=== PATIENT | male | born 1985 | race Caucasian/White ===

== ENCOUNTER 2024-12-10 01:32 | Day surgery (SDC) | payer OTHER, SELFPAY ==
[2024-11-27 08:37] VITALS: BMI 33.4
--- OUTSIDE RECORDS SUMMARY | 2024-12-10 01:35 | XMS_ITS | Patient Health Record ---
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 KLL Diagnosis 1 Plantar fascial fibr omatosis (M72.2) Referred Organization [facility] Referred Provider BASIA MONTALVO Referred Address [address],[place], [id number] Referred Provider Specialty Podiatry Referral Priority Routine Reason REFERRAL ( O RTHOTICS ) FT INSRT REMV MOLD LNGTUDNL SUPP 4 UNITS ( 2 PAIRS ). KLL Diagnosis 1 Plantar fasciitis (M 72.2) Referred Organization [facility] Referred Provider BASIA MONTALVO Referred Address [address],[id number] Referred Provider Specialty Podiatry Referral Priority Routine Reason [facility] REFERRAL ( S URGERY ) [id number] SCOPE PLANTAR FASCIOTOMY QTY 1 PROVIDER: DR. MONTALVO FACILITY: [facility]. KLL Diagnosis 1 Plantar fasciitis (M 72.2) Referred Organization [facility] Referred Provider BASIA MONTALVO Referred Address [address],[place], [place],[id number] Referred Provider Specialty Podiatry Referral Priority Routine Reason [facility] REFERRAL ( E STABLISHED VISITS ) [id number] / [id number] Diagnosis 1 Plantar fasciitis (M 72.2) [facility] Referred Provider BASIA MONTALVO Referred Address [address],[id number] Referred Provider Specialty Podiatry Referral Priority Routine Medications Medication SIG (Take, Route, Frequency, Duration) Notes Start Date End Date Status methylPREDNISolone 4 MG as directed Orally one pack 024 Active Ciclopirox 8 % 1 application Externally Once a day for 30 days one bottle, 6.6mL or similar Active HYDROcodone-Acetaminophen 5-325 MG 1 tablet as needed Orally every 4-6 hrs As needed for pain. 07/03/2024 Active Immunizations Vaccine Route Administration Date Status Comme nts Pneumococcal polysaccharide PPV23 Unknown 09/02/2024 Re fused Influenza, high dose seasonal Unknown 04/11/2023 Admini stered Influenza, high dose seasonal Unknown 09/02/2024 Refuse d Vital Signs Height-cm 172.72 cm 09/02/2024 Weight-kg 97.52 kg 09/02/2024 Height 68 in 09/02/2024 Weight 215 lbs 09/02/2024 BMI 32.69 kg/m2 09/02/2024 Encounters Encounter Location Date Provider Diagnosis [address] [id number] 07/04/2024 BASIA MONTALVO [facility] [address] [id number] 12/26/2023 BASIA SELVIN Posterior tibial tendinitis, right leg M76.821 ; Plantar fasciitis M72.2 ; Pain in right foot M79.671 and Tinea unguium B35.1 [facility] [address] [id number] 01/16/2024 BASIA SELVIN Posterior tibial tendinitis, right leg M76.821 ; Plantar fasciitis M72.2 ; Pain in right foot M79.671 and Tinea unguium B35.1 [facility] [address] [place], [place] [id number] 04/15/2024 BASIA SNOOK Posterior tibial tendinitis, right leg M76.821 ; Plantar fasciitis M72.2 ; Pain in right foot M79.671 and Tinea unguium B35.1 [facility] [address] [place], [place] [id number] 05/13/2024 BASIA SNOOK Plantar fasciitis M72.2 and Pain in right foot M79.671 [facility] [address] [place], [place] [id number] 06/10/2024 BASIA SNOOK Plantar fasciitis M72.2 and Pain in right foot M79.671 [facility] [address] [place], [place] [id number] 07/11/2024 BASIA SNOOK Plantar fasciitis M72.2 and Encounter for other specified surgical aftercare Z48.89 [facility] [address] [place], [place] [id number] 2024 BASIA SNOOK Plantar fasciitis M72.2 and Encounter for other specified surgical aftercare Z48.89 [facility] [address] [place], [place] [id number] 08/05/2024 BASIA SNOOK Plantar fasciitis M72.2 and Encounter for other specified surgical aftercare Z48.89 [facility] [address] [place], [place] [id number] 09/02/2024 BASIA SNOOK Plantar fasciitis M72.2 and Encounter for other specified surgical aftercare Z48.89 [facility] [address] [place], [place] [id number] 06/26/2024 BASIA SNOOK [facility] [address] [place], [place] [id number] 07/03/2024 BASIA SNOOK Assessments Encounter Date Diagnosis (ICD Code) Assessment Notes Treatment Notes Treatment Clinical Notes Section Notes 12/26/2023 Posterior tibial tendinitis, right leg (ICD-10 - M76.821) Posterior Tibialis Tendon Dysfunction: I discussed anti-inflammatory treatment options and various means of immobilization with the patient. I educated the patient on icing and stretching, supportive shoegear, and the use of orthotic devices and bracing. Orthotic Continue: Advised patient to continue to wear orthotic devices. 12/26/2023 Plantar fasciitis (ICD-10 - M72.2) Plantar Fascitis: I discussed anti-inflammatory treatment options and various means of pronation control with the patient. I educated the patient on icing and stretching, supportive shoegear, and the use of orthotic devices. Kenalog Injection: Following skin prep, a total of 3 ccs of a 1-1-1 mix of 0.5% marcaine plain, 1% lidocaine plain, and Kenalog was injected to the right heel 01/16/2024 Posterior tibial tendinitis, right leg (ICD-10 - M76.821) Posterior Tibialis Tendon Dysfunction: I discussed anti-inflammatory treatment options and various means of immobilization with the patient. I educated the patient on icing and stretching, supportive shoegear, and the use of orthotic devices and bracing. Orthotic Continue: Advised patient to continue to wear orthotic devices. 01/16/2024 Plantar fasciitis (ICD-10 - M72.2) Plantar Fascitis: I discussed anti-inflammatory treatment options and various means of pronation control with the patient. I educated the patient on icing and stretching, supportive shoegear, and the use of orthotic devices. Consult: Physical Therapy, eval and treat: plantar fascitis. SAFB 04/15/2024 Posterior tibial tendinitis, right leg (ICD-10 - M76.821) Posterior Tibialis Tendon Dysfunction: I discussed anti-inflammatory treatment options and various means of immobilization with the patient. I educated the patient on icing and stretching, supportive shoegear, and the use of orthotic devices and bracing. Orthotic Continue: Advised patient to continue to wear orthotic devices. 06/10/2024 Plantar fasciitis (ICD-10 - M72.2) Plantar Fascitis: I discussed anti-inflammatory treatment options and various means of pronation control with the patient. I educated the patient on icing and stretching, supportive shoegear, and the use of orthotic devices. Orthotic Dispense: The orthotic devices were dispensed and fitted. It was noted that the orthotic conformed well to the patient's foot in the subtalar joint neutral position. The patient was educated on the device's use, as well as the gradual break-in period for the device. 07/11/2024 Encounter for other specified surgical aftercare (ICD-10 - Z48.89) 07/11/2024 Plantar fasciitis (ICD-10 - M72.2) Dressing Change: The old dressing was removed. Utilizing aseptic technique, a new sterile compression dressing was applied. Patient was instructed to keep it dry and not remove it. Continue post-operative restrictions. Keep foot and dressing dry. Wear surgical shoe at all times when bearing weight. Decrease activity. 2024 Encounter for other specified surgical aftercare (ICD-10 - Z48.89) 2024 Plantar fasciitis (ICD-10 - M72.2) Suture Removal: The sutures were removed. The patient may progress to normal shoes and activities as tolerated. Work Restrictions: Provided a note to the patient outlining work restrictions and limitations. 08/05/2024 Encounter for other specified surgical aftercare (ICD-10 - Z48.89) 08/05/2024 Plantar fasciitis (ICD-10 - M72.2) Strapping and Padding: A removable longitudinal metatarsal strapping was made. The patient was educated on its use and effect. This was done to provide support to the arch. Patient will gradually transition from the strapping LM pad back to his custom orthotics 09/02/2024 Encounter for other specified surgical aftercare (ICD-10 - Z48.89) 09/02/2024 Plantar fasciitis (ICD-10 - M72.2) Surgical Restriction Release: Patient may resume normal bathing. Return to normal shoes. Gradual return to activities as tolerated. Patient instructed to contact the office if any issues arise. Orthotic Continue: Advised patient to continue to wear orthotic devices. 04/15/2024 Plantar fasciitis (ICD-10 - M72.2) Plantar Fascitis: I discussed anti-inflammatory treatment options and various means of pronation control with the patient. I educated the patient on icing and stretching, supportive shoegear, and the use of orthotic devices. Night Splint: A night splint was fitted and dispensed. The patient was instructed on its use. 05/13/2024 Plantar fasciitis (ICD-10 - M72.2) Plantar Fascitis: I discussed anti-inflammatory treatment options and various means of pronation control with the patient. I educated the patient on icing and stretching, supportive shoegear, and the use of orthotic devices. Orthotic Scan: The patient was scanned for functional orthotic devices. This was done in the subtalar joint neutral position in a non-weightbearing fashion. The patient will follow-up in 3-4 weeks time to be dispensed and fitted with the devices. 06/10/2024 Pain in right foot (ICD-10 - M79.671) 05/13/2024 Pain in right foot (ICD-10 - M79.671) 04/15/2024 Pain in right foot (ICD-10 - M79.671) 01/16/2024 Pain in right foot (ICD-10 - M79.671) 12/26/2023 Pain in right foot (ICD-10 - M79.671) 12/26/2023 Tinea unguium (ICD-10 - B35.1) 01/16/2024 Tinea unguium (ICD-10 - B35.1) 04/15/2024 Tinea unguium (ICD-10 - B35.1) 05/13/2024 Other EPF Surgical Consult: Surgical Consent The patient understands there are no guarantees. There is a chance of: 1. Infection 2. Overcorrection 3. Undercorrection 4. Non resolution of the problem 5. Return of the problem 6. Numbness 7. Anesthetic reaction 8. Healing problems or blood clot 9. Additional or revisional surgery may be required if complications occur The patient had no further question and has agreed to undergo surgical correction of the admitting diagnosis. Patient has signed the written consent form at this time. Endoscopic Plantar Fasciotomy right foot Plan Of Treatment No Information Insurance Providers Payer Name Payer Address Payer Phone Subscriber Number Group Number Insured Name Patient Relationship to Insured Coverage Start Date Coverage End Date [facility] [address] [phone] [id number] Ok Cleary Self - patient is the insured
--- OUTSIDE RECORDS SUMMARY | 2024-12-10 01:36 | XMS_ITS | Continuity of Care Document ---
Author Name [facility] Organization [facility] Care Team Providers Care Research Pharmacist Name Role Phone [facility] Unavailable Unavailable Problems Combined list of problems from Department of Defense and Veterans Affairs facilities. It does not include entries that were removed or entered in error. 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) Active 05/31/20 15 Condition [facility] Obesity, unspecified Active 06/22/18 99 Condition [facility] Elevated blood-pressure reading, without diagnosis of hypertension Active 06/22/18 99 Condition [facility] Ankle pain Active Condition [facility] Gastroenteritis Active Condition [facility] Headache Active Condition [facility] Hemorrhoids Active Condition [facility] Hyperlipidemia Active Condition [facility] Migraine without aura1 Active Condition Outside Source Comment: Headaches described are c/w migraine without aura. No concerning neurologic features. No evidence to suggest tumor or other concerning etiology. Normal neurologic exam. Asymptomatic x2 years & headaches successfully abort with OTC meds. Recommendations: 1. No reason to disapprove commissioning physical from a neurologic standpoint. 2. No indication for further work-up or specific treatment at this time. [facility] WARTS HAND RIGHT Active Condition [facility] TENDONITIS PATELLAR Active Condition [facility] URETHRITIS Inactive Condition [facility] DERMATOPHYTOSIS Active Condition [facility] UPPER RESPIRATORY INFECTION Inactive Condition [facility] SORE THROAT Inactive Condition [facility] SINUSITIS Inactive Condition [facility] abnormal urethral discharge Inactive Condition [facility] NORMAL ROUTINE HISTORY AND PHYSICAL Inactive Condition [facility] visit for: issue repeat prescription Inactive Condition [facility] visit for: refer patient without exam or treatment Inactive Condition [facility] HEMORRHOIDS Active Condition [facility] SEBORRHEIC DERMATITIS Inactive Condition DoD ankle joint pain Active Condition DoD COMMON COLD Inactive Condition DoD ANKLE SPRAIN Inactive Condition DoD Physical Examination Active Condition patient has bee n given to the patient Separation physical, paperwork for sports participation during [facility] training has been completed and given to patient. Also a copy of the January [address] Davis ( [facility] neurologist) patient presented with this printout in hand. DoD DERMATOPHYTOSIS ONYCHOMYCOSIS TOENAILS RIGHT 5TH Active Condition minimal involvement of pink toe nail; discussed treatment options with patient--at this time feel oral antifungal med rsiks outweight benefits--pt elects trial of tineacide topical ointment; discussed proper nail trimming; trimmed down nail today without problems. [facility] Patient Counseling: Inactive Condition DoD Laboratory Studies Inactive Condition p t will recheck labs in 2 weeks and call for results.pt agrees DoD DERMATOPHYTOSIS NAILS ONYCHOMYCOSIS Inactive Condition [facility] DERMATOLOGY NON-INFECTIOUS NAILS Active Condition DoD ACUTE TONSILLITIS Inactive Condition [facility] MIGRAINE HEADACHE Active Condition [facility] visit for: administrative purpose Inactive Condition DoD WARTS COMMON Inactive Condition DoD FOLLICULITIS Active Condition DoD visit for: occupational health / fitness exam Inactive Condition DoD visit for: services physical Inactive Condition DoD Tremor Active Condition DoD COMMON MIGRAINE (WITHOUT AURA) Active Condition Headaches described are c/w migraine without aura. No concerning neurologic features. No evidence to suggest tumor or other concerning etiology. Normal neurologic exam. Asymptomatic x2 years & headaches successfully abort with OTC meds.Recommendat ions:1. No reason to disapprove commissioning physical from a neurologic standpoint.2. No indication for further work-up or specific treatment at this time. DoD headache Active Condition DoD GASTROENTERITIS Active Condition DoD Pain in joint, lower leg Active Condition DoD Care involving other physical therapy Inactive Condition DoD Other Physical Therapy Active Condition DoD PATELLOFEMORAL SYNDROME Active Condition DoD Medications Combined list of outpatient medications from Department of Defense and Veterans Affairs facilities.Medications provided include 1) outpatient medications from the last 15 months, and 2) patient-reported medications. Medication Details Route Status Patient Instructions Prescription Expires Prescription Number Last Dispense Date Ordering Provider Order Date Order Qty Source Aleve mg, Oral, every 12 hr, 0 total refill(s ), Maintena nce [facility] mouth) [facility] [place] Aleve 220 mg oral capsule mg, Oral, every 12 hr, 0 total refill(s ), Maintena nce Oral (given by mouth) [facility] 20[facility] alfuzosin 10 mg oral tablet, extended release 1 tab(s), Oral, Daily, # 90 tab(s), 3 total refill(s ), Maintena nce, Pharmacy : [facility] Oral (given by mouth) Discont inued 07/02/2024 4 2024 90.0 0055C-3 [facility] [place] alfuzosin 10 mg oral tablet, extended release 1 tab(s), Oral, Daily, # 90 tab(s), 3 total refill(s ), Maintena nce, Pharmacy : [facility] Oral (given by mouth) Ordered 5 2024 90.0 0055C-[address] [place], [place] [address]Jennifer Nunn Alfuzosin Hydrochlori de 10mg, (UroXatral) , Extended release tablet Take with food/mil k.Take or use exactly as directed .Obtain advice for OTCs.May cause drowsine ss/dizzi ness.May impair driving. Swallow whole. 09/23/2024 [id number] 4 2023 90 [employer] ([facility]) atorvastati n 40 mg oral tablet 1 tab(s), Oral, Daily, for choleste rol, # 90 tab(s), 3 total refill(s ), Maintena nce, Pharmacy : [facility] Oral (given by mouth) Ordered 5 2023 90.0 0055C-[address] [place] [address] [place] Sinus Rinse Kit 0.9% nasal powder for reconstitut ion See Instruct ions, Dissolve the contents of one packet in 8 oz of purified /filtere d water and instill into sinuses as directed , # 50 EA, 0 total refill(s ), Maintena nce, Pharmacy : [facility] Discont inued 10/05/2023 3 2023 50.0 0009C-5 [employer] CELECOXIB (celecoxib) , 200 MG, CAPSULE, ORAL, [facility], 100 ea. BOTTLE Active [id number] 2023 30 Pharmac y Data Transac tion Service Facilit y celecoxib 200 mg oral capsule 30 EA, 0 Refill(s ), TAKE 1 CAPSULE BY MOUTH DAILY WITH FOOD, 0 total refill(s ), Soft Stop Ordered 2023 7379[facility]L [facility] CETIRIZINE (U/D) 10 MG ORAL TAB May cause drowsine ss.Obtai n advice for OTCs. 08/14/2024 [id number] 4 [address] [place] [address] [place] RIOS ([facility]) cetirizine 10 mg tablet See Instruct ions, # 90 EA, 1 total refill(s ), Acute Complet ed 05/07/2023 3 2022 90.0 Ambulat ory Pharmac y CLOBETASOL PROPIONATE (clobetasol propionate) , 0.05 %, OINT. (G), TOPICAL, ENCUBE ETHICALS, 60 g TUBE Active [id number] 4 2023 60 Pharmac y Data Transac tion Service Facilit y Clotrimazol e (Lotrimin Eq.) Cream 1% Topical For external use. 09/23/2024 [id number] 4 [address] [place] [address] [place] DILLARD ([facility]) clotrimazol e 1% topical cream 1 appl(s), Topical, BID, X 6 weeks, # 28.35 g, 0 total refill(s ), Acute, Pharmacy : [facility] Topica l (on the skin) Complet ed 11/05/2023 4 2023 28.35 0055C-[address] [place] [address] [place] collagen hemostat absorbable powder (1g) 1 appl(s), Topical, As Directed , # 5, 0 total refill(s ), Maintena nce, Supply Topica l (on the skin) Ordered 2024 0055C-[address] [place] [address] [place] cyclobenzap rine 10 mg oral tablet 1 tab(s), Oral, every day at bedtime, # 21 tab(s), 0 total refill(s ), Acute, Pharmacy : [facility] Oral (given by mouth) Complet ed 09/19/2024 5 2024 21.0 0055C-[address] [place] [address] [place] escitalopra m 10 mg oral tablet See Instruct ions, Oral, take one-half tablet by mouth every day for 7 days, then take one tablet every day for anxiety, # 85 tab(s), 0 total refill(s ), Maintena nce, 90 days, Pharmacy : [facility] Oral (given by mouth) Discont inued 10/13/20242024 85.0 0055C-[address] [place] [address] escitalopra m 10 mg oral tablet See Instruct ions, Oral, take one-half tablet by mouth every day for 7 days, then take one tablet every day for anxiety, # 85 tab(s), 0 total refill(s ), Maintena nce, 90 days, Pharmacy : [facility] Oral (given by mouth) Discont inued 10/13/2024 5 2024 85.0 0055C-[address] [place] [address] [place] escitalopra m 20 mg oral tablet 1 tab(s), Oral, Daily, # 90 tab(s), 1 total refill(s ), Maintena nce, Pharmacy : [facility] Oral (given by mouth) Ordered 5 2024 90.0 0055C-[address] [place] [address] escitalopra m 20 mg oral tablet 1 tab(s), Oral, Daily, # 60 tab(s), 0 total refill(s ), Maintena nce, Pharmacy : [facility] Oral (given by mouth) Discont inued 10/13/2024 5 2024 60.0 0055C-[address] [place] [address] [place] Eye Itch Relief 0.025% ophthalmic solution 5 mL, 0 Refill(s ), administ er 1 drop into affected eye) 2 times per day for 30 days, 0 total refill(s ), Soft Stop Discont inued 10/05/20232023 7[facility] fluticasone 50 mcg/inh nasal spray USE 2 SPRAYS IN EACH NOSTRIL DAILY, # 16 g, 3 total refill(s ), Acute Complet ed 11/12/2023 3 2023 16.0 Ambulat ory Pharmac y HYDROCORTIS ONE (HYDROCORTI SONE), 1%, OINT.(GM), TOPICAL, FOUGERA, 28.35 g TUBE Cancele d [id number] : 2023 0 Pharmac y Data Transac tion Service Facilit y hydrocortis one 2.5% topical cream 30 g, 0 Refill(s ), apply to affected area three times daily for 7 days, 0 total refill(s ), Soft Stop Discont inued 10/05/20232023 [facility] ibuprofen 600 mg oral tablet 1 tab(s), Oral, every 8 hr, PRN pain (moderat e), X 30 days, # 90 tab(s), 0 total refill(s ), Acute, 06/11/24 9:53:00 AM CANVAS BASTER, Pharmacy : [facility] Oral (given by mouth) Complet ed 06/11/2024 4 2023 90.0 0055C-3 [facility] X[facility]O [facility] levothyroxi ne 112 mcg oral tablet 1 tab(s), Oral, Daily, for thyroid; as a single daily dose before breakfas t/on an empty stomach, # 90 tab(s), 0 total refill(s ), Astrid ohe, Pharmacy : [facility] Oral (given by mouth) Discont inued 07/02/2024 5 2024 90.0 0055C[facility] lidocaine 5% topical patch 1 patch(es ), Topical, Daily, Leave on for up to 12 hours within a 24 hour period (12 hours on, 12 hours off), # 30 patch(es ), 3 total refill(s ), Astrid ohsunny, Pharmacy : [facility] Topica l (on the skin) Ordered 5 2024 30.0 0055C-3 [facility] XIAO [facility] Mucinex 600 mg oral tablet, extended release 1 tab(s), Oral, every 12 hr, # 20 tab(s), 0 total refill(s ), Acute, 08/29/23 12:00:00 AM CANVAS BASTER, Pharmacy : [facility] Oral (given by mouth) Complet ed 08/29/2023 4 2023 20.0 0055C-[address] [place], [place] [address]Jennifer Nunn multivitami n (Vit B Complex/Vit C/Zinc) tablet tab(s), Oral, Daily, 0 total refill(s ), Maintena nce Oral (given by mouth) Ordered 2022 0055C-[address] [place] [address] [place] nabumetone 500 mg tablet See Instruct ions, Oral, # 28 EA, 1 total refill(s ), Hard Stop Oral (given by mouth) Complet ed 09/24/2023 4 2023 28.0 Ambulat ory Pharmac y Sudafed 30 mg oral tablet 1 tab(s), Oral, every 6 hr, # 24 tab(s), 0 total refill(s ), Acute, 08/29/23 12:00:00 AM CANVAS BASTER, Pharmacy : [facility] Oral (given by mouth) Complet ed 08/29/2023 4 2023 24.0 0055C-[address] [place], [place] [address]FREDRICK [place] TACROLIMUS (tacrolimus ), 0.1 %, OINT. (G), TOPICAL, [employer] PHARMA, 60 g TUBE Active [id number] 4 2023 60 Pharmac y Data Transac tion Service Facilit y Tylenol 325 mg oral tablet 1 tab(s), Oral, every 4 hr, PRN pain or fever, # 100 tab(s), 0 total refill(s ), Acute, 09/24/23 10:42:50 AM CDT, Pharmacy : [facility] Oral (given by mouth) Complet ed 09/24/2023 4 2023 100.0 0055C-[address] [place] [address] [place] Tylenol 325 mg oral tablet 1 tab(s), Oral, every 4 hr, PRN pain or fever, X 10 days, # 50 tab(s), 0 total refill(s ), Acute, 05/22/24 9:53:00 AM CANVAS BASTER, Pharmacy : [facility] Oral (given by mouth) Complet ed 05/22/2024 4 2023 50.0 0055C-3 [facility] [place] ZyrTEC 10 mg oral tablet 1 tab(s), Oral, Daily, PRN allergy symptoms , # 90 tab(s), 3 total refill(s ), Maintena nce Oral (given by mouth) Complet ed 09/24/20232023 90.0 0055C-3 [facility] [place] ZyrTEC 10 mg oral tablet 1 tab(s), Oral, Daily, PRN allergy symptoms , # 90 tab(s), 3 total refill(s ), Maintena nce, Pharmacy : [facility] Oral (given by mouth) Discont inued 07/02/2024 4 2024 90.0 0055C-3 [facility] [place] ZyrTEC 10 mg oral tablet 1 tab(s), Oral, Daily, PRN allergy symptoms , # 90 tab(s), 3 total refill(s ), Maintena nce, Pharmacy : [facility] Oral (given by mouth) Ordered 5 2024 90.0 0055C[facility] [place] Allergies, Adverse Reactions, Alerts Combined list of allergies from Department of Defense and Veterans Affairs facilities. It does not include entries that were removed or entered in error. Substance Category Reaction Severity Reaction type Status Date Reported Comments Source No Known Allergies Drug allergy (disorder) active 05/08/2022 [facility] Seasonal Allergies Allergy to substance Unknown Unknown Active [facility] Immunizations Combined list of available immunizations from the Department of Defense and Veterans Affairs facilities. Immunization Series Date Given Administered By Site Reaction Lot Number CVX Code Drug General Cargo Clerk Status Comments Source SARS-CoV-2 (COVID-19) mRNA-Bivalent 2022 [id number] complet ed SARS-CoV- 2 (COVID-19 ) mRNA-Biva lent 07/28/22 Given Ambulat ory Pharmac y SARS-CoV-2 (COVID-19) mRNA-Bivalent 2022 [id number] 229 complet ed SARS-CoV- 2 (COVID-19 ) mRNA-Biva lent 07/28/22 Given Ambulat ory Pharmac y COVID-19, mRNA, LNP-S, bivalent, PF, 50 mcg/0.5 mL or 25mcg/0.25 mL dose (Moderna, 6+ years) 3 2022 [id number] 229 Moderna [employer] (MOD) complet ed COVID-19, mRNA, LNP-S, bivalent, PF, 50 mcg/0.5 mL or 25mcg/0.2 5 mL dose (Moderna, 6+ years) DoD influenza, injectable, quadrivalent- pf 2021 [id number] 150 GlaxoSmithKli ne complet ed influenza , injectabl e, quadrival ent-pf 05/11/22 Given Ambulat ory Pharmac y influenza, injectable, quadrivalent- pf 2021 [id number] 150 GlaxoSmithKli ne complet ed influenza , injectabl e, quadrival ent-pf 05/11/22 Given Ambulat ory Pharmac y Influenza, injectable, quadrivalent, preservative free 0 2021 [id number] 150 [facility] Influenza , injectabl e, quadrival ent, preservat thony free [facility] tetanus-dipht h toxoids (Td) adult/adol 2021 [id number] 09 sanofi pasteur complet ed tetanus-d iphth toxoids (Td) adult/ado l 02/20/22 Given Ambulat ory Pharmac y tetanus-dipht h toxoids (Td) adult/adol 2021 [id number] 09 sanofi pasteur complet ed tetanus-d iphth toxoids (Td) adult/ado l 02/20/22 Given Ambulat ory Pharmac y tetanus and diphtheria toxoids, adsorbed, preservative free, for adult use (2 Lf of tetanus toxoid and 2 Lf of diphtheria toxoid) 2 2021 [id number] 09 Sanofi Pasteur (PMC) complet ed tetanus and diphtheri a toxoids, adsorbed, preservat thony free, for adult use (2 Lf of tetanus toxoid and 2 Lf of diphtheri a toxoid) DoD COVID Vaccine Moderna 2021 zzLef t Arm [id number] complet ed COVID Vaccine Moderna 09/28/21 Given Ambulat ory Pharmac y COVID Vaccine Moderna [id number] complet ed COVID Vaccine Moderna 09/28/21 Given Ambulat ory Pharmac y SARS-COV-2 (COVID-19) vaccine, mRNA, spike protein, LNP, preservative free, 100 mcg or 50 mcg dose 1 2021 [id number] Moderna [employer]. (MOD) complet ed SARS-COV- 2 (COVID-19 ) vaccine, mRNA, spike protein, LNP, preservat thony free, 100 mcg or 50 mcg dose DoD influenza, injectable, quadrivalent- pf 2020 [id number] 150 GlaxoSmithKli ne complet ed influenza , injectabl e, quadrival ent-pf 04/13/21 Given Ambulat ory Pharmac y influenza, injectable, quadrivalent- pf 2020 [id number] 150 GlaxoSmithKli ne complet ed influenza , injectabl e, quadrival ent-pf 04/13/21 Given Ambulat ory Pharmac y Influenza, injectable, quadrivalent, preservative free 1 2020 [id number] 150 [employer] (SKB) complet ed Influenza , injectabl e, quadrival ent, preservat thony free DoD influenza, seasonal, [place], quadrivalent, 0.5mL dose, with preservative 1 2020 [id number] Sanofi Pasteur (PMC) complet ed influenza , seasonal, [place], quadrival ent, 0.5mL dose, with preservat thony DoD SARS-CoV-2 (COVID-19) Ad26 vaccine, rec 2020 [id number] [employer] complet ed SARS-CoV- 2 (COVID-19 ) Ad26 vaccine, rec 08/31/20 Given Ambulat ory Pharmac y SARS-CoV-2 (COVID-19) Ad26 vaccine, rec 2020 [id number] [employer] complet ed SARS-CoV- 2 (COVID-19 ) Ad26 vaccine, rec 08/31/20 Given Ambulat ory Pharmac y SARS-COV-2 (COVID-19) vaccine, vector non-replicati ng, recombinant spike protein-Ad26, preservative free, 0.5 mL 1 2020 [id number] (SANJIVJ) complet ed SARS-COV- 2 (COVID-19 ) vaccine, vector non-repli cating, recombina nt spike protein-A d26, preservat thony free, 0.5 mL DoD influenza, injectable, quadrivalent- pf 2019 [id number] 150 [employer] complet ed influenza , injectabl e, quadrival ent-pf 05/06/20 Given Ambulat ory Pharmac y influenza, injectable, quadrivalent- pf 2019 [id number] 150 [employer] complet ed influenza , injectabl e, quadrival ent-pf 05/06/20 Given Ambulat ory Pharmac y Influenza, injectable, quadrivalent, preservative free 0 2019 [id number] 150 [employer] (SEQ) complet ed Influenza , injectabl e, quadrival ent, preservat thony free DoD influenza, injectable, quadrivalent- pf 2018 [id number] 346 150 [employer] complet ed influenza , injectabl e, quadrival ent-pf 05/13/19 Given Ambulat ory Pharmac y Influenza, injectable, quadrivalent, preservative free 0 2018 [id number] 346 150 [employer] (SEQ) complet ed Influenza , injectabl e, quadrival ent, preservat thony free DoD typhoid Vi capsular polysaccharid e vac 2017 [id number] 101 sanofi pasteur complet ed typhoid Vi capsular polysacch aride vac 04/22/18 Given Ambulat ory Pharmac y anthrax vaccine 2017 [id number] 24 [employer] complet ed anthrax vaccine 04/22/18 Given Ambulat ory Pharmac y anthrax vaccine 2017 [id number] 24 [employer] complet ed anthrax vaccine 04/22/18 Given Ambulat ory Pharmac y typhoid Vi capsular polysaccharid e vac 2017 [id number] 101 sanofi pasteur complet ed typhoid Vi capsular polysacch aride vac 04/22/18 Given Ambulat ory Pharmac y anthrax vaccine 3 2017 [id number] 24 [employer] [place] (MIP) complet ed anthrax vaccine DoD typhoid Vi capsular polysaccharid e vaccine 1 2017 [id number] 101 Sanofi Pasteur (PMC) complet ed typhoid Vi capsular polysacch aride vaccine DoD influenza, injectable, quadrivalent 2017 [id number] 1A 158 [employer] complet ed influenza , injectabl e, quadrival ent 04/10/18 Given Ambulat ory Pharmac y influenza, injectable, quadrivalent 2017 [id number] 1A 158 [employer] complet ed influenza , injectabl e, quadrival ent 04/10/18 Given Ambulat ory Pharmac y influenza, injectable, quadrivalent, contains preservative 1 2017 [id number] 1A 158 [employer] (SEQ) complet ed influenza , injectabl e, quadrival ent, contains preservat thony DoD anthrax vaccine 2017 [id number] 24 [employer] complet ed anthrax vaccine 11/20/17 Given Ambulat ory Pharmac y anthrax vaccine 2 2017 [id number] 24 [employer] [place] ([facility]) complet ed anthrax vaccine DoD measles virus vaccine 0 2017 05 () Not Given measles virus vaccine DoD rubella virus vaccine 0 2017 06 () Not Given rubella virus vaccine DoD mumps virus vaccine 0 2017 07 () Not Given mumps virus vaccine DoD anthrax vaccine 2017 [id number] 24 [employer] complet ed anthrax vaccine 10/08/17 Given Ambulat ory Pharmac y poliovirus vaccine, inactivated 2017 [id number] 10 sanofi pasteur complet ed polioviru s vaccine, inactivat ed 10/08/17 Given Ambulat ory Pharmac y anthrax vaccine 2017 [id number] 24 [employer] complet ed anthrax vaccine 10/08/17 Given Ambulat ory Pharmac y poliovirus vaccine, inactivated 2017 [id number] 10 sanofi pasteur complet ed polioviru s vaccine, inactivat ed 10/08/17 Given Ambulat ory Pharmac y measles virus vaccine 2 2017 05 () Not Given measles virus vaccine DoD rubella virus vaccine 2 2017 06 () Not Given rubella virus vaccine DoD mumps virus vaccine 2 2017 07 () Not Given mumps virus vaccine DoD poliovirus vaccine, inactivated 2 2017 [id number] 10 Sanofi Pasteur (PMC) complet ed polioviru s vaccine, inactivat ed DoD anthrax vaccine 1 2017 [id number] 24 [facility] [employer] [place] (MIP) complet ed anthrax vaccine DoD tuberculin purified protein derivative 2016 [id number] 96 sanofi pasteur complet ed tuberculi n purified protein derivativ e 04/11/17 Given Ambulat ory Pharmac y Influenza, inj, MDCK, quadrivalent- pf [id number] 171 [employer] complet ed Influenza , inj, MDCK, quadrival ent-pf 04/05/17 Given Ambulat ory Pharmac y Influenza, inj, MDCK, quadrivalent- pf 2016231 171 [employer] complet ed Influenza , inj, MDCK, quadrival ent-pf 04/05/17 Given Ambulat ory Pharmac y Influenza, injectable, Madin Dena Canine Kidney, preservative free, quadrivalent 14 [id number] 171 [employer] (SEQ) comple t ed Influenza , injectabl e, Madin [place] Canine Kidney, preservat thony free, quadrival ent DoD influenza, seasonal, injectable-pf 2015 [id number] 140 [employer] complet ed influenza , seasonal, injectabl e-pf 04/20/16 Given Ambulat ory Pharmac y typhoid Vi capsular polysaccharid e vac 2015 [id number] 101 sanofi pasteur complet ed typhoid Vi capsular polysacch aride vac 04/20/16 Given Ambulat ory Pharmac y meningococcal A,C,Y,W-135 (MCV4P) 2015 [id number] 114 sanofi pasteur complet ed meningoco ccal A,C,Y,W-1 35 (MCV4P) 04/20/16 Given Ambulat ory Pharmac y meningococcal A,C,Y,W-135 (MCV4P) 2015 [id number] 114 sanofi pasteur complet ed meningoco ccal A,C,Y,W-1 35 (MCV4P) 04/20/16 Given Ambulat ory Pharmac y typhoid Vi capsular polysaccharid e vac 2015 L1570 101 sanofi pasteur complet ed typhoid Vi capsular polysacch aride vac 04/20/16 Given Ambulat ory Pharmac y influenza, seasonal, injectable-pf 2015 [id number] 140 [employer] complet ed influenza , seasonal, injectabl e-pf 04/20/16 Given Ambulat ory Pharmac y typhoid Vi capsular polysaccharid e vaccine 3 2015 [id number] 101 Sanofi Pasteur ([facility]) complet ed typhoid Vi capsular polysacch aride vaccine DoD meningococcal polysaccharid e (groups A, C, Y and W-135) diphtheria toxoid conjugate vaccine (MCV4P) 3 2015 [id number] 114 Sanofi Pasteur ([facility]) complet ed meningoco ccal polysacch aride (groups A, C, Y and W-135) diphtheri a toxoid conjugate vaccine (MCV4P) DoD Influenza, seasonal, injectable, preservative free 13 2015 [id number] Seqirus (SEQ) comple t ed Influenza , seasonal, injectabl e, preservat thony free DoD yellow fever vaccine 2015 [id number] 37 sanofi pasteur complet ed yellow fever vaccine 01/05/16 Given Ambulat ory Pharmac y yellow fever vaccine 2015 [id number] 37 sanofi pasteur complet ed yellow fever vaccine 01/05/16 Given Ambulat ory Pharmac y yellow fever vaccine 1 2015 [id number] 37 Sanofi Pasteur (PMC) complet ed yellow fever vaccine DoD influenza, live, intranasal,qu adrivalent 2014 TRANSCR IBED 149 complet ed influenza , live, intranasa l,quadriv alent 03/31/15 Given Ambulat ory Pharmac y influenza, live, intranasal,qu adrivalent 2014 TRANSCR IBED 149 complet ed influenza , live, intranasa l,quadriv alent 03/31/15 Given Ambulat ory Pharmac y influenza, live, intranasal, quadrivalent 1 2014 149 Transcribed (TRS) complet ed influenza , live, intranasa l, quadrival ent DoD influenza, live, intranasal,qu adrivalent 2013 [id number] 149 Med[employer] Inc comple t ed influenza , live, intranasa l,quadriv alent 04/16/14 Given Ambulat ory Pharmac y influenza, live, intranasal,qu adrivalent 2013 [id number] 149 [employer] Inc comple t ed influenza , live, intranasa l,quadriv alent 04/16/14 Given Ambulat ory Pharmac y influenza, live, intranasal, quadrivalent 11 2013 [id number] 149 MedImmune, Inc. (MED) complet ed influenza , live, intranasa l, quadrival ent DoD typhoid Vi capsular polysaccharid e vac 2012 [id number] 101 sanofi pasteur complet ed typhoid Vi capsular polysacch aride vac 04/30/13 Given Ambulat ory Pharmac y typhoid Vi capsular polysaccharid e vac 2012 [id number] 101 sanofi pasteur complet ed typhoid Vi capsular polysacch aride vac 04/30/13 Given Ambulat ory Pharmac y typhoid Vi capsular polysaccharid e vaccine 2 2012 [id number] 101 Sanofi Pasteur ([facility]) complet ed typhoid Vi capsular polysacch aride vaccine DoD influenza, live, intranasal,qu adrivalent 2012 [id number] 149 Med[employer] Inc comple t ed influenza , live, intranasa l,quadriv alent 03/06/13 Given Ambulat ory Pharmac y influenza, live, intranasal,qu adrivalent 2012 [id number] 149 Med[employer] Inc comple t ed influenza , live, intranasa l,quadriv alent 03/06/13 Given Ambulat ory Pharmac y influenza, live, intranasal, quadrivalent 10 2012 [id number] 149 MedImmune, Inc. (MED) complet ed influenza , live, intranasa l, quadrival ent DoD influenza virus vaccine, live 2011 [id number] 111 Med[employer] Inc comple t ed influenza virus vaccine, live 03/12/12 Given Ambulat ory Pharmac y influenza virus vaccine, live 2011 [id number] 111 Med[employer] Inc comple t ed influenza virus vaccine, live 03/12/12 Given Ambulat ory Pharmac y influenza virus vaccine, live, attenuated, for intranasal use 9 2011 [id number] 111 MedImmune, Inc. (MED) complet ed influenza virus vaccine, live, attenuate d, for intranasa l use DoD tetanus, diphtheria, acellular pertu is 2011 [id number] 115 [email or web address] complet ed tetanus, diphtheri a, acellular pertussis 12/15/11 Given Ambulat ory Pharmac y tetanus, diphtheria, acellular pertu is 2011 [id number] 115 [facility] ed tetanus, diphtheri a, acellular pertussis 12/15/11 Given Ambulat ory Pharmac y tetanus toxoid, reduced diphtheria toxoid, and acellular pertu is vaccine, adsorbed [id number] [employer] ([employer]) complet ed tetanus toxoid, reduced diphtheri a toxoid, and acellular pertussis vaccine, adsorbed DoD influenza virus vaccine, live 2010 [id number] 111 Med[employer] Inc comple t ed influenza virus vaccine, live 04/10/11 Given Ambulat ory Pharmac y influenza virus vaccine, live 2010 [id number] 111 [employer] comple t ed influenza virus vaccine, live 04/10/11 Given Ambulat ory Pharmac y influenza virus vaccine, live, attenuated, for intranasal use 8 2010 [id number] 111 [employer] (MED) complet ed influenza virus vaccine, live, attenuate d, for intranasa l use DoD influenza virus vaccine,split 2009 15 complet ed influenza virus vaccine,s plit 02/19/10 Given Ambulat ory Pharmac y influenza virus vaccine,split 2009 15 complet ed influenza virus vaccine,s plit 02/19/10 Given Ambulat ory Pharmac y influenza virus vaccine, split virus (incl. purified surface antigen)-reti red CODE 2 2009 15 Transcribed (TRS) complet ed influenza virus vaccine, split virus (incl. purified surface antigen)- retired CODE [facility] meningococcal A,C,Y,W-135 (MCV4P) 2008 [id number] 114 sanofi pasteur complet ed meningoco ccal A,C,Y,W-1 35 (MCV4P) 12/31/08 Given Ambulat ory Pharmac y meningococcal A,C,Y,W-135 (MCV4P) 2008 [id number] 114 sanofi pasteur complet ed meningoco ccal A,C,Y,W-1 35 (MCV4P) 12/31/08 Given Ambulat ory Pharmac y meningococcal polysaccharid e (groups A, C, Y and W-135) diphtheria toxoid conjugate vaccine (MCV4P) 1 2008 [id number] 114 Sanofi Pasteur (PMC) complet ed meningoco ccal polysacch aride (groups A, C, Y and W-135) diphtheri a toxoid conjugate vaccine (MCV4P) DoD influenza virus vaccine, live 2007 [id number] 111 [employer] comple t ed influenza virus vaccine, live 07/08/07 Given Ambulat ory Pharmac y influenza virus vaccine, live 2007 [id number] 111 [employer] comple t ed influenza virus vaccine, live 07/08/07 Given Ambulat ory Pharmac y influenza virus vaccine, live, attenuated, for intranasal use 1 2007 [id number] 111 [employer] (MED) complet ed influenza virus vaccine, live, attenuate d, for intranasa l use DoD influenza virus vaccine,split 2005 [id number] 15 sanofi pasteur complet ed influenza virus vaccine,s plit 05/28/06 Given Ambulat ory Pharmac y influenza virus vaccine,split 2005 [id number] 15 sanofi pasteur complet ed influenza virus vaccine,s plit 05/28/06 Given Ambulat ory Pharmac y influenza virus vaccine, split virus (incl. purified surface antigen)-reti red CODE 1 2005 [id number] 15 Sanofi Pasteur (PMC) complet ed influenza virus vaccine, split virus (incl. purified surface antigen)- retired CODE DoD influenza virus vaccine, whole virus 2004 [id number] 16 sanofi pasteur complet ed influenza virus vaccine, whole virus 03/22/05 Given Ambulat ory Pharmac y influenza virus vaccine, whole virus 2004 [id number] 16 sanofi pasteur complet ed influenza virus vaccine, whole virus 03/22/05 Given Ambulat ory Pharmac y influenza virus vaccine, whole virus 1 2004 [id number] 16 Sanofi Pasteur (PMC) complet ed influenza virus vaccine, whole virus DoD vaccinia (smallpox) vaccine 2004 [id number] 75 [facility] complet ed vaccinia (smallpox ) vaccine 01/27/05 Given Ambulat ory Pharmac y vaccinia (smallpox) vaccine 2004 [id number] 75 [facility] complet ed vaccinia (smallpox ) vaccine 01/27/05 Given Ambulat ory Pharmac y vaccinia (smallpox) vaccine 1 2004 [id number] [facility] vaccinia (smallpox ) vaccine DoD typhoid Vi capsular polysaccharid e vac 2004 [id number] 101 sanofi pasteur complet ed typhoid Vi capsular polysacch aride vac 01/09/05 Given Ambulat ory Pharmac y typhoid Vi capsular polysaccharid e vac 2004 [id number] 101 sanofi pasteur complet ed typhoid Vi capsular polysacch aride vac 01/09/05 Given Ambulat ory Pharmac y typhoid Vi capsular polysaccharid e vaccine 1 2004 [id number] 101 Sanofi Pasteur (PMC) complet ed typhoid Vi capsular polysacch aride vaccine DoD influenza virus vaccine, whole virus 2004 [id number] 16 sanofi pasteur complet ed influenza virus vaccine, whole virus 07/06/04 Given Ambulat ory Pharmac y influenza virus vaccine, whole virus 2004 [id number] 16 sanofi pasteur complet ed influenza virus vaccine, whole virus 07/06/04 Given Ambulat ory Pharmac y influenza virus vaccine, whole virus 0 2004 [id number] 16 Sanofi Pasteur (PMC) complet ed influenza virus vaccine, whole virus DoD hepatitis A adult vaccine 2003 [id number] 52 [employer] complet ed hepatitis A adult vaccine 08/26/03 Given Ambulat ory Pharmac y hepatitis A adult vaccine 2003 [id number] 52 [employer] Inc complet ed hepatitis A adult vaccine 08/26/03 Given Ambulat ory Pharmac y hepatitis A vaccine, adult dosage 2 2003 [id number] 52 Merck (MSD) complet ed hepatitis A vaccine, adult dosage DoD influenza virus vaccine, whole virus 2002 [id number] 16 sanofi pasteur complet ed influenza virus vaccine, whole virus 04/10/03 Given Ambulat ory Pharmac y influenza virus vaccine, whole virus 2002 [id number] 16 sanofi pasteur complet ed influenza virus vaccine, whole virus 04/10/03 Given Ambulat ory Pharmac y influenza virus vaccine, whole virus 0 2002 [id number] 16 Sanofi Pasteur (PMC) complet ed influenza virus vaccine, whole virus DoD hepatitis A adult vaccine 2002 [id number] 52 [employer] complet ed hepatitis A adult vaccine 12/19/02 Given Ambulat ory Pharmac y hepatitis A adult vaccine 2002 [id number] 6 52 [employer] complet ed hepatitis A adult vaccine 12/19/02 Given Ambulat ory Pharmac y measles, mumps and rubella virus vaccine 0 2002 03 () Not Given measles, mumps and rubella virus vaccine DoD varicella virus vaccine 1 2002 21 () Not Given varicella virus vaccine DoD hepatitis B vaccine, adult dosage 1 2002 43 () Not Given hepatitis B vaccine, adult dosage DoD hepatitis A vaccine, adult dosage 1 2002 [id number] 6 52 [employer] ([employer]) complet ed hepatitis A vaccine, adult dosage DoD poliovirus vaccine, inactivated 2002 [id number] 10 sanofi pasteur complet ed polioviru s vaccine, inactivat ed 12/12/02 Given Ambulat ory Pharmac y tetanus-dipht h toxoids (Td) adult/adol 2002 [id number] 09 sanofi pasteur complet ed tetanus-d iphth toxoids (Td) adult/ado l 12/12/02 Given Ambulat ory Pharmac y meningococcal polysaccharid e (MPSV4) 2002 [id number] 32 sanofi pasteur complet ed meningoco ccal polysacch aride (MPSV4) 12/12/02 Given Ambulat ory Pharmac y influenza virus vaccine, whole virus 2002 [id number] 16 sanofi pasteur complet ed influenza virus vaccine, whole virus 12/12/02 Given Ambulat ory Pharmac y tetanus-dipht h toxoids (Td) adult/adol 2002 [id number] 09 sanofi pasteur complet ed tetanus-d iphth toxoids (Td) adult/ado l 12/12/02 Given Ambulat ory Pharmac y meningococcal polysaccharid e (MPSV4) 2002 [id number] 32 sanofi pasteur complet ed meningoco ccal polysacch aride (MPSV4) 12/12/02 Given Ambulat ory Pharmac y tuberculin purified protein derivative 2002 [id number] 96 sanofi pasteur complet ed tuberculi n purified protein derivativ e 12/12/02 Given Ambulat ory Pharmac y tetanus and diphtheria toxoids, adsorbed, preservative free, for adult use (2 Lf of tetanus toxoid and 2 Lf of diphtheria toxoid) 0 2002 [id number] 09 Sanofi Pasteur (PMC) complet ed tetanus and diphtheri a toxoids, adsorbed, preservat thony free, for adult use (2 Lf of tetanus toxoid and 2 Lf of diphtheri a toxoid) DoD poliovirus vaccine, inactivated 0 2002 [id number] 10 Sanofi Pasteur (PMC) complet ed polioviru s vaccine, inactivat ed DoD influenza virus vaccine, whole virus 0 2002 [id number] 16 Sanofi Pasteur (PMC) complet ed influenza virus vaccine, whole virus DoD meningococcal polysaccharid e vaccine (MPSV4) 0 2002 [id number] 32 Sanofi Pasteur (PMC) complet ed meningoco ccal polysacch aride vaccine (MPSV4) DoD Results Combined list of recent chemistry, hematology and other laboratory results from [facility], ranging from 15 months to all on record, depending upon the facility. Order Name Results Value Reference Range Date Interpretation Specimen Comments Source Chemistry TSH 6.170 mIU/L 0.270 - 4.200 10/15 H Interpretiv e Data: Recommend: TPO/Thyrope roxidase Antibody when TSH result is > 4.2 uIU/mL [id number] EP[facility] Immunolog y/Serolog y Thyroid Peroxidase Ab <15 IU/mL 10/15 N Interpretiv e Data: Values above 35 IU/mL are generally associated with autoimmune thyroiditis , but elevations are also seen in other autoimmune diseases. In patients with subclinical hypothyroid ism, the presence of thyroperoxi dase (TPO) antibodies predicts a higher risk of developing overt hypothyroid ism, 4.3% per year versus 2.1% per year in antibody-ne gative individuals . Furthermore , it raises the concern that such patients may be at increased risk of developing other autoimmune diseases, such as adrenal insufficien cy and type 1 diabetes. The frequency of detectable anti-TPO observed in nonimmune thyroid disease is similar to the 10% to 12% observed in a healthy population with normal thyroid function. There is a good association between the presence of autoantibod ies against TPO and histologica l thyroiditis . However, in view of the extensive regenerativ e capacity of the thyroid under the influence of thyroid-sti mulating hormone, chronic thyroid disease may be present for years before the clinical manifestati on of hypothyroid ism becomes evident, if ever. Moderately increased levels of thyroperoxi dase (TPO) antibodies may be found in patients with nonthyroid autoimmune disease such as pernicious anemia, type 1 diabetes, or other disorders that activate the immune system. No reference ranges available for pediatric patients. Methodology : Electrochem iluminescen ce [id number] EP[facility] Chemistry T3 Total 1.02 ng/mL 0.80 - 2.00 10/15 N Interpretiv e Data: METHODOLOGY : Testing performed by electrochem iluminescen t immunoassay (ECLIA). [id number] EP[facility] Chemistry TSH 4.870 mIU/L 0.270 - 4.200 08/18 H Interpretiv e Data: Recommend: TPO/Thyrope roxidase Antibody when TSH result is > 4.2 uIU/mL [id number] EP[facility] Chemistry T4 Free 1.20 ng/dL 0.93 - 1.70 08/18 N Interpretiv e Data: METHODOLOGY : Testing performed by electrochem iluminescen t immunoassay (ECLIA). [id number] EP[facility] Chemistry TSH 3.960 mIU/L 0.270 - 4.200 07/07 N Interpretiv e Data: Recommend: TPO/Thyrope roxidase Antibody when TSH result is > 4.2 uIU/mL [facility] EP[facility] Chemistry T4 Free 1.22 ng/dL 0.93 - 1.70 06/10 N Interpretiv e Data: METHODOLOGY : Testing performed by electrochem iluminescen t immunoassay (ECLIA). 5600A[facility] EP[facility] Chemistry TSH 7.530 mIU/L 0.270 - 4.200 06/10 H Interpretiv e Data: Recommend: TPO/Thyrope roxidase Antibody when TSH result is > 4.2 uIU/mL [id number] EP[facility] Urinalysi s UA Urobilinog en 0.2 E.U./dL 0.2 - 1.0.. 05/15 N [id number] [facility] Urinalysi s UA Spec [place] 1.010 1.001 - 1.035 05/15 N 5th [facility]ren Urinalysi s UA RBC TNP 05/15 5th [facility] Urinalysi s UA Blood Negative ( 4 8:41 AM) 05/15 N 5th [facility] Urinalysi s UA Bili Negative ( 4 8:41 AM) Negative 05/15 N 5th [facility] Urinalysi s UA WBC TNP 05/15 [facility] Urinalysi s UA Ketones Negative mg/dL Negative 05/15 N 5th [facility] Urinalysi s UA Glucose Negative mg/dL Negative 05/15 N 5th [facility] Urinalysi s UA Color Yellow *NA* ( 4 8:41 AM) 05/15 [facility] Urinalysi s UA Clarity Clear *NA* ( 4 8:41 AM) 05/15 [facility] Urinalysi s UA Protein Negative mg/dL 05/15 N 5th [facility] Urinalysi s UA pH 7.5 *NA* ( 4 8:41 AM) 5 - 8 05/15 [facility] Urinalysi s UA Nitrite Negative ( 4 8:41 AM) 05/15 N 5th [facility] Urinalysi s UA Leuk Esterase Negative ( 4 8:41 AM) Negative 05/15 N [facility]th [facility] Chemistry LDL/HDL 2 03/25 5th [facility] Chemistry LDL 92 mg/dL 100 - 130 03/25 L Interpretiv e Data: AGES 0-19: Desirable: < 110 mg/dL Borderline High: 110-129 mg/dL High: >/= 130 mg/dL ADULTS: Desirable: <100 mg/dL Near/above optimal: 100-130 mg/dL Borderline High: 131-159 mg/dL High: 160-189 mg/dL Very High: 190 mg/dL [facility] Chemistry Triglyceri evangelist 251 mg/dL 7 - 149 03/25 H Interpretiv e Data: AGES 0-9: Desirable: < 75 mg/dL Borderline High: 75-99 mg/dL High: >/= 100 mg/dL AGES 10-19: Desirable: < 90 mg/dL Borderline High: 90-129 mg/dL High: >/= 130 mg/dL ADULTS: Desirable: < 150 mg/dL Borderline High: 150-199 mg/dL High: >/= 240 mg/dL Very High: >/= 500 mg/dL [address] [place] [address] Chemistry Cholestero l Total 171 mg/dL 03/25 N Interpretiv e Data: According to the [place] [employer] : AGES 0-19: Desirable: < 170 mg/dL Borderline High: 170-199 mg/dL High Blood Cholesterol : >/= 200 mg/dL ADULTS: Desirable < 200 mg/dL Borderline High: 200-239 mg/dL High Blood Cholesterol : >/= 240 mg/dL [facility] Chemistry Chol/HDL 3 mg/dL 03/[address] [place] [address] Chemistry HDL Cholestero l 58 mg/dL 40 - 59 03/25 N Interpretiv e Data: HDL (HIGH DENSITY LIPOPROTEIN ): ADULTS: Low: < 40 mg/dL High: >/= 60 mg/dL AGES 0 -19: Low: < 40 mg/dL Borderline Low: 40 - 45 mg/dL Acceptable: > 45 mg/dL [facility] Hematolog y WBC.LC 4.6 10^3/uL 03/25 [facility] Hematolog y Platelets. LC 218 10^3/uL 03/25 Result Comment: Performed At: [address] [id number] Axel Escalante PhD Ph:[phone] [facility] Hematolog y RDW.LC 13.0 % 03/25 [facility] Hematolog y MCHC.LC 33.4 g/dL 03/25 [facility] Hematolog y MCH.LC 30.3 pg 03/25 [facility] Hematolog y MCV.LC 91 fL 03/25 [facility] Hematolog y Hematocrit .LC 43.4 % 03/25 [facility] Hematolog y Hemoglobin .LC 14.5 g/dL 03/[address] [place] [address] Hematolog y RBC Count.LC 4.78 10^6/uL 03/[address] [place] [address] Chemistry CRP 0.08 mg/dL 0.02 - 0.50 03/25 N [facility] Hematolog y ESR Auto Plus 8 mm/h 0 - 15 03/25 N Interpretiv e Data: The clinical significanc e of an ESR result obtained from an abnormal sample, including but not limited to icteric, lipemic, cold agglutinins , anemic conditions, low hemoglobin concentrati ons, hemolysis, or any pathologica l condition that interferes or prevents a clear red cell to plasma interface is subject to a high degree of variability . [facility] Chemistry LDL/HDL 3 12/[address] [place] [address] Chemistry Triglyceri evangelist 181 mg/dL 7 - 149 12/24 H Interpretiv e Data: AGES 0-9: Desirable: < 75 mg/dL Borderline High: 75-99 mg/dL High: >/= 100 mg/dL AGES 10-19: Desirable: < 90 mg/dL Borderline High: 90-129 mg/dL High: >/= 130 mg/dL ADULTS: Desirable: < 150 mg/dL Borderline High: 150-199 mg/dL High: >/= 240 mg/dL Very High: >/= 500 mg/dL [facility] Chemistry LDL 204 mg/dL 100 - 130 12/24 H Interpretiv e Data: AGES 0-19: Desirable: < 110 mg/dL Borderline High: 110-129 mg/dL High: >/= 130 mg/dL ADULTS: Desirable: <100 mg/dL Near/above optimal: 100-130 mg/dL Borderline High: 131-159 mg/dL High: 160-189 mg/dL Very High: 190 mg/dL [address] [place] [address] Chemistry HDL Cholestero l 69 mg/dL 40 - 59 12/24 H Interpretiv e Data: HDL (HIGH DENSITY LIPOPROTEIN ): ADULTS: Low: < 40 mg/dL High: >/= 60 mg/dL AGES 0 -19: Low: < 40 mg/dL Borderline Low: 40 - 45 mg/dL Acceptable: > 45 mg/dL [facility] Chemistry Chol/HDL 4 mg/dL 12/[address] [place] [address] Chemistry Cholestero l Total 250 mg/dL 12/24 H Interpretiv e Data: According to the [place] [employer] : AGES 0-19: Desirable: < 170 mg/dL Borderline High: 170-199 mg/dL High Blood Cholesterol : >/= 200 mg/dL ADULTS: Desirable < 200 mg/dL Borderline High: 200-239 mg/dL High Blood Cholesterol : >/= 240 mg/dL [facility] Infectiou s Disease HIV-1/O/2 Non-Reac tive (09/24/23 11:36 AM) 09/23 N Interpretiv e Data: INTERPRETAT ION: This method is a screening procedure for the detection of HIV p24 Antigen and Antibodies to HIV-1, including Group O, and/or HIV-2. NON-REACTIV E: HIV-1 antigen and HIV-1 / HIV-2 antibodies were not detected. No laboratory evidence of HIV infection. A negative test result does not exclude the possibility of exposure to or infection with HIV. HIV antibodies and/or p24 antigen may be undetectabl e in some stages of the infection and in some clinical conditions. If acute HIV infection is suspected, consider submitting another specimen to a reference laboratory for HIV-1 RNA. SCREEN REACTIVE - CONFIRMATIO N TO FOLLOW: Possible presence of HIV-1antibo dies, HIV-2 antibodies and/or HIV-1 p24 antigen. Specimen will reflex to the confirmatio n testing that fulfills the Center for Disease Control and Prevention' s HIV diagnostic algorithm. Refer to [facility] Lab Guide for additional information : [email or web address] x Testing performed by Krzysztof almanza. [id number][facility] EP[facility] Molecular Infectiou s Disease Parainflue nza 3 Not Detected (08/15/23 9:23 AM) 08/15 N [id number] [place], [place] [address]S [facility] Molecular Infectiou s Disease Human Rhinovirus /Enterovir us Not Detected (08/15/23 9:23 AM) 08/15 N [id number] [place] [address]-S [facility] Molecular Infectiou s Disease Respirator y Syncytial Virus Not Detected (08/15/23 9:23 AM) 08/15 N [id number]-[id number] [place] [address] Molecular Infectiou s Disease Parainflue nza 4 Not Detected (08/15/23 9:23 AM) 08/15 N [id number] [place], [place] [address]S [facility] Molecular Infectiou s Disease Bordetella pertussis Not Detected (08/15/23 9:23 AM) 08/15 N [id number] [place] [address]-S [facility] Molecular Infectiou s Disease Adenovirus Not Detected (08/15/23 9:23 AM) 08/15 N [id number] [place] [address]-S [facility] Molecular Infectiou s Disease Reason for Test? Diagnosi s (08/15/23 9:23 AM) 08/15 N [id number] [place] [address] Molecular Infectiou s Disease SARS-CoV-2 PCR Not Detected 21 (08/15/23 9:23 AM) 08/15 N Interpretiv e Data: The [employer] international COVID-19 Test contains three different assays (SARS-CoV-2 a, SARS-CoV-2d , SARS-CoV-2e ) for the detection of SARS-CoV-2. The [employer] interprets each of these assays independent ly and the results are combined as a final test result for the virus. SARS-CoV-2- Detected If two or more assays are 'Detected' the result on the test report will be 'Detected'. SARS-CoV-2- Not Detected-al l assays are 'Not Detected', the result on the test report will be 'Not Detected' SARS-CoV-2 Equivocal- Only one of three assays was D etected for the virus. The combination of D etected and N ot Detected assay results were inconclusiv e [address] [place] [address] Molecular Infectiou s Disease Bordetella parapertus sis Not Detected (08/15/23 9:23 AM) 08/[address] [place] [address] Molecular Infectiou s Disease Chlamydia pneumoniae Not Detected (08/15/23 9:23 AM) 08/[address] [place] [address] Infectiou s Disease Coronaviru s OC43 Detected *ABN* (08/15/23 9:23 AM) 08/[address] [place] [address] Molecular Infectiou s Disease Coronaviru s NL63 Not Detected (08/15/23 9:23 AM) 08/[address] [place] [address] Molecular Infectiou s Disease Coronaviru s HKU1 Not Detected (08/15/23 9:23 AM) 08/[address] [place] [address] Molecular Infectiou s Disease Coronaviru s 229E Not Detected (08/15/23 9:23 AM) 08/[address] [place] [address] Infectiou s Disease Human Metapneumo virus Not Detected (08/15/23 9:23 AM) 08/[address] [place] [address] Molecular Infectiou s Disease Influenza A H1 (2008) Detected 10 *ABN* (08/15/23 9:23 AM) 08/15 A Result Comment: Critical result called to and read back by CARLIE Esquivel at 08/15/23 13:04:08 CANVAS BASTER by MARY. [address] [place] [address] Molecular Infectiou s Disease [place]ain[place] nza 2 Not Detected (08/15/23 9:23 AM) 08/[address] [place] [address] Molecular Infectiou s Disease [place] nza 1 Not Detected (08/15/23 9:23 AM) 08/15 N - 5th [facility] Molecular Infectiou s Disease Mycoplasma pneumoniae Not Detected (08/15/23 9:23 AM) 08/15 N 005- 5th [facility] Molecular Infectiou s Disease Influenza B Not Detected (08/15/23 9:23 AM) 08/15 N - 5th [facility] Molecular Infectiou s Disease SARS-CoV-2 PCR Negative 22 (04/27/23 9:08 AM) 04/27 N Interpretiv e Data: The Xpert Xpress SARS-CoV-2 test is a real-time RT-PCR test intended for the qualitative detection of nucleic acid from the SARS-CoV-2 in nasopharyng eal swab, nasal swab, or nasal wash/aspira te specimen collected from individuals who are suspected of COVID-19 infection. Results are for the identificat ion of SARS-CoV-2 RNA. Positive results are indicative of the presence of SARS-CoV-2 RNA; clinical correlation with patient history and other diagnostic information is necessary to determine patient infection status. Positive results do not rule out bacterial infection or co-infectio n with other viruses. Negative results do not preclude SARS-CoV-2 infection and should not be used as the sole basis for treatment or other patient management decisions. Negative results must be combined with clinical observation s, patient history, and epidemiolog ical information . The Xpert Xpress SARS-CoV-2/ Flu/RSV test is a rapid, multiplexed real-time RT-PCR test intended for the simultaneou s qualitative detection and differentia tion of SARS-CoV-2, influenza A, influenza B, and respiratory syncytial virus (RSV) viral RNA Results are for the simultaneou s detection and differentia tion of SARS-CoV-2, influenza A virus, influenza B virus and RSV nucleic acids in clinical specimens and is not intended to detect influenza C virus. Positive results are indicative of the presence of the identified virus, but do not rule out bacterial infection or co-infectio n with other pathogens not detected by the test. Negative results do not preclude SARS-CoV-2, influenza A virus, influenza B virus and/or RSV infection and should not be used as the sole basis for treatment or other patient management decisions. Negative results must be combined with clinical observation s, patient history, and/or epidemiolog ical information . [facility] Molecular Infectiou s Disease Reason for Test? Nathaniel bartholomew (04/27/23 9:08 AM) 04/27 N [facility] Vital Signs Combined list of inpatient and outpatient Vital Signs from Department of Defense and Veterans Affairs, ranging from 12 months to all on record, depending upon the facility. Vital Sign Value Date Comments Source Systolic Blood Pressure 122 mm[Hg] 05/12/20 24 15:23:00 [facility] Diastolic Blood Pressure 82 mm[Hg] 024 15:23:00 [facility] Mean Arterial Pressure, Calc 95 mm[Hg] 05/12/2024 15:23:00 [facility] BP Site Left arm 05/12/2024 15:23:00 [facility] BP Site Left arm 09/24/2023 15:43:00 [facility] Temperature Oral 36.8 Elena 09/24/2023 15:43:00 [facility] Respiratory Rate 16 br/min 09/24/2023 15:43:00 [facility] Peripheral Pulse Rate 72 bpm 09/24/2023 15:43:00 [facility] Blood Pressure Manual Automatic 08/15/2023 14:50:00 [facility] Respiratory Rate 16 br/min 08/15/2023 14:50:00 [facility] Peripheral Pulse Rate 97 bpm 08/15/2023 14:50:00 [facility] Temperature Oral 37.6 Elena 08/15/2023 14:50:00 [facility] Respiratory Rate 16 br/min 05/12/2024 15:21:00 [facility] Peripheral Pulse Rate 81 bpm 05/12/2024 15:21:00 [facility] Temperature Oral 36.8 Elena 05/12/2024 15:21:00 [facility] Systolic Blood Pressure 134 mm[Hg] 05/12/20 24 15:21:00 [facility] Diastolic Blood Pressure 92 mm[Hg] 024 15:21:00 [facility] Mean Arterial Pressure, Calc 106 mm[Hg] 05/12/2024 15:21:00 [facility] BP Site Right arm 05/12/2024 15:21:00 [facility] Blood Pressure Manual Automatic 05/12/2024 15:21:00 [facility] Temperature Oral 36.8 Elena 08/22/2024 15:06:00 [facility] BP Site Left arm 08/22/2024 15:06:00 [facility] Respiratory Rate 16 br/min 08/22/2024 15:06:00 [facility] Mean Arterial Pressure, Calc 97 mm[Hg] 08/22/2024 15:06:00 [facility] Peripheral Pulse Rate 71 bpm 08/22/2024 15:06:00 [facility] Systolic Blood Pressure 121 mm[Hg] 08/22/19 25 15:06:00 [facility] Diastolic Blood Pressure 85 mm[Hg] 025 15:06:00 [facility] Blood Pressure Manual Automatic 08/22/2024 15:06:00 [facility] Mean Arterial Pressure, Calc 98 mm[Hg] 01/10/2024 20:36:00 [facility] Systolic Blood Pressure 124 mm[Hg] 01/10/20 24 20:36:00 [facility] Diastolic Blood Pressure 85 mm[Hg] 024 20:36:00 [facility] Mean Arterial Pressure, Calc 97 mm[Hg] 11/28/2023 13:59:00 [facility] Peripheral Pulse Rate 89 bpm 11/28/2023 13:59:00 [facility] Respiratory Rate 16 br/min 11/28/2023 13:59:00 [facility] Systolic Blood Pressure 116 mm[Hg] 11/28/19 24 13:59:00 [facility] Diastolic Blood Pressure 88 mm[Hg] 024 13:59:00 [facility] Temperature Oral 36.9 Elena 11/28/2023 13:59:00 [facility] Blood Pressure Manual Automatic 11/28/2023 13:59:00 [facility] BP Site Left arm 11/28/2023 13:59:00 [facility] Systolic Blood Pressure 100 mm[Hg] 12/05/19 25 13:54:00 [facility] Diastolic Blood Pressure 64 mm[Hg] 025 13:54:00 [facility] Mean Arterial Pressure, Calc 76 mm[Hg] 12/04/2024 13:54:00 [facility] BP Site Right arm 12/04/2024 13:54:00 [facility] Systolic Blood Pressure 119 mm[Hg] 10/14/19 25 16:04:00 [facility] Diastolic Blood Pressure 81 mm[Hg] 025 16:04:00 [facility] Mean Arterial Pressure, Calc 94 mm[Hg] 10/13/2024 16:04:00 [facility] Peripheral Pulse Rate 85 bpm 10/13/2024 16:04:00 [facility] Temperature Oral 36.7 Elena 10/13/2024 16:04:00 [facility] Respiratory Rate 16 br/min 10/13/2024 16:04:00 [facility] BP Site Left arm 10/13/2024 16:04:00 [facility] Blood Pressure Manual Automatic 10/13/2024 16:04:00 [facility] BP Site Left arm 07/02/2024 19:03:00 [facility] Blood Pressure Manual Automatic 07/02/2024 19:03:00 [facility] Temperature Oral 36.9 Elena 07/02/2024 19:03:00 [facility] Respiratory Rate 16 br/min 07/02/2024 19:03:00 [facility] Mean Arterial Pressure, Calc 94 mm[Hg] 07/02/2024 19:03:00 [facility] Peripheral Pulse Rate 97 bpm 07/02/2024 19:03:00 [facility] Systolic Blood Pressure 121 mm[Hg] 07/02/19 19:03:00 [facility] Diastolic Blood Pressure 80 mm[Hg] 025 19:03:00 [facility] BP Site Left arm 01/10/2024 20:20:00 [facility] Blood Pressure Manual Automatic 01/10/2024 20:20:00 [facility] Systolic Blood Pressure 126 mm[Hg] 01/10/20 24 20:20:00 [facility] Diastolic Blood Pressure 91 mm[Hg] 024 20:20:00 [facility] Peripheral Pulse Rate 79 bpm 01/10/2024 20:20:00 [facility] Mean Arterial Pressure, Calc 103 mm[Hg] 01/10/2024 20:20:00 [facility] Respiratory Rate 16 br/min 01/10/2024 20:20:00 [facility] Temperature Oral 36.8 Elena 01/10/2024 20:20:00 [facility] Blood Pressure Manual Automatic 04/20/2023 15:39:00 [facility] Peripheral Pulse Rate 88 bpm 12/04/2024 13:52:00 [facility] Respiratory Rate 16 br/min 12/04/2024 13:52:00 [facility] Systolic Blood Pressure 96 mm[Hg] 12/05/19 25 13:52:00 [facility] Diastolic Blood Pressure 64 mm[Hg] 025 13:52:00 [facility] Mean Arterial Pressure, Calc 75 mm[Hg] 12/04/2024 13:52:00 [facility] Blood Pressure Manual Automatic 12/04/2024 13:52:00 [facility] Temperature Oral 37 Elena 12/04/2024 13:52:00 [facility] BP Site Right arm 12/04/2024 13:52:00 [facility] Peripheral Pulse Rate 72 bpm 04/27/2023 15:10:00 [facility] Temperature Oral 36.7 Elena 04/27/2023 15:10:00 [facility] Respiratory Rate 16 br/min 04/27/2023 15:10:00 [facility] Blood Pressure Manual Automatic 04/27/2023 15:10:00 [facility] Encounters Combined list of: 1) Encounters from Department of Veterans Affairs facilities going backup to the last 18 months, not all VA inpatient encounters are included; 2) Encounters from the Department of Defense facilities going backup to 280 months. Location Location Details Encounter Type Encounter Number Reason For Visit Attending Provider ADM Date DC Date Status Disposition Source [facility] romusculo skeletal) OUTPATIENT [id number] GEORGE KENNEDY 01/10 Released w/o Limitations [facility](N euromus culoske letal) [facility](Phy sical Therapy [employer]) OUTPATIENT [id number] MARIA G LUU 01/18 Released w/o Limitations [facility](P hysical Therapy [employer]) [facility]hy sical Therapy [employer]) OUTPATIENT [id number] MARIA G LUU 01/20 Released w/o Limitations [facility](P hysical Therapy [employer]) [facility](Phy sical Therapy [employer]) OUTPATIENT [id number] MARIA G LUU 01/25 Released w/o Limitations [facility](P hysical Therapy [employer]) [facility](Phy sical Therapy [employer]) OUTPATIENT [id number] MARIA G LUU 01/27 Released w/o Limitations [facility](P hysical Therapy [employer]) [facility](Anne romusculo skeletal) OUTPATIENT [id number] GEORGE KENNEDY 02/17 Released w/o Limitations [facility](N euromus culoske letal) [facility] ) OUTPATIENT [id number] NAUSEA/ VOMITIN G, DIARRHE A AT NIGHT SHADIA GUERRERO 12/01 Released w/o Limitations [facility]) [facility] ) OUTPATIENT [id number] PHA 1 - PREDEPL OYMENT CATRACHITO SHERIFF 01/25 Released w/o Limitations [facility]) [facility] ) OUTPATIENT [id number] F/U for migrain es, pt. request referra l to neurolo gy. SHADIA GUERRERO 11/10 Released w/o Limitations [facility]) [facility] rology Clinic) OUTPATIENT [id number] headroberta e NICHELLE DEVRIES 11/28 Released w/o Limitations [facility](N eurolog y Clinic) [facility] ) OUTPATIENT [id number] PHA 1 ARI PERERA 01/03 Released w/o Limitations [facility]) [facility] ght Medicine Clinic) OUTPATIENT [id number] audiogr am LUIS PANIAGUA 01/08 Released w/o Limitations [facility]( light Medicin e Clinic) [facility] ) OUTPATIENT [id number] rash concern s x 2 weeks SHADIA GUERRERO 02/22 Released w/o Limitations [facility]) [facility] ) TELE CONSULT [id number] RX request JET SHAW 04/[facility]) [facility] ) OUTPATIENT [id number] Request ing migrain e med, Imitrex SHADIA GUERRERO 04/27 Released w/o Limitations [facility] [place] [facility] ) OUTPATIENT [id number] COLD SYMPTOM S SHADIA GUERRERO 06/05 Released w/o Limitations [facility] [place]) [facility] ) OUTPATIENT [id number] toe nail concern s SHADIA GUERRERO 08/07 Released w/o Limitations [facility] [place]) [facility] ) OUTPATIENT [id number] toe nail concern SHADIA GUERRERO 10/15 Released w/o Limitations [facility] [place]) [facility] ) TELE CONSULT [id number] Request Lab results VIRA CHAWLA 10/26 [facility] [place]) [facility] ce Health [facility]agemen t) OUTPATIENT [id number] Commiss NICK Sánchez 02/11 Released w/o Limitations [facility]( orce Health Managem ent) [facility]) OUTPATIENT [id number] PHA 1 JUDY LUCERO 02/15 Released w/o Limitations [facility] [place]) [facility] [id number] Audiogr GIRISH Lee 02/15 Released w/o Limitations [facility](F light Medicin e Clinic) [facility] rology Clinic) OUTPATIENT [id number] waiver- neurolo gy issue-p er RICARDO Justin 02/19 Released w/o Limitations [facility](N eurolog y Clinic) [facility] t) OUTPATIENT [id number] Commiss KAYE Stallings 02/20 Released w/o Limitations [facility](F orce Health Managem ent) [facility]) OUTPATIENT [id number] Annual PHA JUDY LUCERO H 07/08 Released w/o Limitations [facility] [place]) [facility] ) OUTPATIENT [id number] toe nail concern EDOUARD SILVA Debra 10/01 Released w/o Limitations [facility] [place]) [facility] ) OUTPATIENT [id number] separat ion KULWINDER Padgett 01/01 Released w/o Limitations [facility] [place]) [facility] ) TELE CONSULT [id number] Paperwo PEARL Kaplan 01/01 [facility] [place]) [facility]) OUTPATIENT [id number] PHA ELVIN ROSSI 04/26 Released w/o Limitations [facility](P [facility]) [facility]) OUTPATIENT [id number] R ankle pain ELIZABETH, RICARDO F 09/12 Released w/o Limitations [facility] Practic e [facility]) [facility]) OUTPATIENT [id number] SICK CALL- R ankle pain NEGRA CARNEY 09/26 Released w/o Limitations [facility](F amily Practic e Red) [facility]) OUTPATIENT [id number] SICK CALL- Cold MARY DORANTES F 10/12 Released w/o Limitations [facility] am[facility] Practic e [facility]) [facility]) OUTPATIENT [id number] F/U right Ankle Sprain AFSANEH ORLANDO 10/13 Released w/o Limitations [facility](F amily Practic e Red) [facility] sical Therapy Clinic) OUTPATIENT [id number] ANKLE SPRAIN ALICIA ZENG 10/19 Released with Work/Duty Limitations [facility](P hysical Therapy Clinic) [facility] sical Therapy Clinic) OUTPATIENT [id number] DENA GUADARRAMA 10/21 Released w/o Limitations [facility](P hysical Therapy Clinic) [facility](Phy sical Therapy Clinic) OUTPATIENT [id number] DENA GUADARRAMA 10/25 Released w/o Limitations [facility](P hysical Therapy Clinic) [facility](Phy [facility]ical Therapy [facility]) OUTPATIENT [id number] GEORGE FALCON 10/26 Released w/o Limitations [facility](P hysical Therapy Clinic) [facility](Phy [facility]ical Therapy Clinic) OUTPATIENT [id number] GEORGE FALCON 10/28 Released w/o Limitations [facility](P [facility]ysical Therapy Clinic) [facility](Phy [facility]ical Therapy [facility]) OUTPATIENT [id number] GEORGE FALCON 10/31 Released w/o Limitations [facility](P [facility]ysical Therapy Clinic) [facility](Phy [facility] Therapy [facility]) OUTPATIENT [id number] DENA GUADARRAMA 11/02 Released w/o Limitations [facility](P [facility]ysical Therapy [facility]) [facility]hy [facility] Therapy [facility]) OUTPATIENT [id number] GEORGE FALCON 11/07 Released w/o Limitations [facility](P [facility]ysical Therapy Clinic) [facility](Phy [facility]ical Therapy [facility]) OUTPATIENT [id number] GEORGE FALCON 11/09 Released w/o Limitations [facility](P [facility]ysical Therapy [facility]) [facility](Phy [facility] Therapy [facility]) OUTPATIENT [id number] ALICIA ZENG 11/11 Released w/o Limitations [facility](P hysical Therapy Clinic) [facility](Phy [facility]ical Therapy [facility]) OUTPATIENT [id number] ALICIA ZENG 12/08 Released w/o Limitations [facility](P hysical Therapy Clinic) [facility]) OUTPATIENT [id number] dry patch of skin on eye lid ELVIN ROSSI 01/17 Released w/o Limitations [facility](D over [facility] Team Gayatri john) [facility]([place] [facility] Team [employer]) TELE CONSULT [id number] appt line-no appts ; pt needs an appt for hemorrh oids SUZANNA SUERO Tamera 02/03 Referred for Appointment [facility](D over [facility] Team Hercule s) [facility] er [facility] Team [employer]) OUTPATIENT [id number] pt dealing with hemorrh oids needs ELVIN Banda 02/06 Released w/o Limitations [facility](D over [facility] Team Hercule s) [facility]([place] [facility] Team [place]) TELE CONSULT [id number] appt line - pt needs a referra l to DR. MOSES for 1 appt MARY DORANTES 03/02 [facility](D over [facility] Team [place]) [facility] Medical [facility] er [facility] Team [employer]) TELE CONSULT [id number] appt line-pt seen a GI-Dr Tree quesada &is being referre d out DEMI RUIZ 03/03 Referred for Appointment [facility](D over [facility] Team Hercule s) [facility] er [facility] Team [place]) TELE CONSULT [id number] Pt needs referra l to gen surg s/p ED visit MARY DORANTES 03/10 [facility](D over [facility] Team [place]) [facility] er [facility] Team [place]) TELE CONSULT [id number] appt line- pt having an HPV issue; very painful and has had run around w/4 doctors DEMI RUIZ 03/13 Other Not Elsewhere Classified [facility](D over [facility] Team [place]) [facility] er [facility] Team [place]) TELE CONSULT [id number] Having rectal pain-de sires analges ic til appt with derm MARY DORANTES 03/13 [facility] Medical [facility](D over [facility] Team [place]) [facility] Medical [facility] er [facility] Team [place]) TELE CONSULT [id number] Apt LIne -AD- Dr Tapia - GI sammi r would like a call back about this patient MARY DORANTES 03/23 [facility] Medical [facility](D over [facility] Team [place]) [facility] Medical [facility] er [facility] Team [place]) TELE CONSULT [id number] Pt is in need of referra l to colorec mary surgeon VENKAT RUIZ DEMI R 03/23 Other Not Elsewhere Classified [facility](D over [facility] Team [place]) [facility]([place] [facility] Team [place]) TELE CONSULT [id number] appt line- med refill Lidocai ne 2% gel SARAROHITHDEMI R 03/28 Other Not Elsewhere Classified [facility](D over [facility] Team [place]) [facility]([place] Team [place]) TELE CONSULT [id number] Pt request s early refill of Lidocai ne gel CELINA RODRIGUEZ 03/28 [facility](D over [facility] Team [place]) [facility]([place] Team [place]) TELE CONSULT [id number] con leave MARY DORANTES 04/11 [facility](D over [facility] Team [place]) [facility]) OUTPATIENT [id number] pha-aps MARY DORANTES 05/29 Released w/o Limitations [facility](P [facility] Cell) [facility]([place] [facility] Team [place]) OUTPATIENT [id number] PHA part 2-physi patric MARY DORANTES 06/07 Released w/o Limitations [facility](D over [facility] Team [place]) [facility]([place] [facility] Team [place]) TELE CONSULT [id number] appt line- AD-HPV- referra l visits &surger y-Dr. Moralez n-color ectal surge SUZANNA SUERO 07/11 Referred for Appointment [facility](D over [facility] Team [place]) [facility]([place] [facility] Team [employer]) OUTPATIENT [id number] f/u on surgery AFSANEH ORLANDO 09/18 Released w/o Limitations [facility](D over [facility] Team Hercule s) [facility]([place] [facility] Team [employer]) OUTPATIENT [id number] Notes Entered by: ARGENTINA COTA RD 10 May 2012 0944 ------- ------- ------- ------- -- Walk in STD AFSANEH ORLANDO 05/10 Released w/o Limitations [facility](D over [facility] Team Hercule s) [facility]([place] [facility] [employer]) TELE CONSULT [id number] Notes Entered by: Jasmina ORLANDO 20 May 2012 0947 ------- ------- ------- ------- -- Lab results AFSANEH ORLANDO 05/20 [facility](D over [facility] Team [employer]ercule s) [facility]) OUTPATIENT [id number] PHA AFSANEH ORLANDO 06/12 Released w/o Limitations [facility](P [facility] Cell) [facility]([place] [facility] [employer]) OUTPATIENT [id number] sore throat, headach es, swellin g in neck/th roat since 08/23/12 ANTON HUMMEL 09/04 Released w/o Limitations [facility](D over [facility] Team Hercule s) [facility]([place] [facility] [employer]) TELE CONSULT [id number] Notes Entered by: HAL LLOYD 14 Nov 2012 1212 ------- ------- ------- ------- -- VVC message -allerg y concern s LUNA LLOYD 11/14 Referred for Appointment [facility](D over [facility] Team Hercule s) [facility]([place] [facility] [employer]) OUTPATIENT [id number] oversea s AFSANEH Boone 01/24 Released w/o Limitations [facility](D over [facility] Team Hercule s) [facility]) TELE CONSULT [id number] Notes Entered by: HAL LLOYD 27 Feb 2013 0801 ------- ------- ------- ------- -- VVC message LUNA LLOYD 02/27 Referred for Appointment [facility]) [facility]([place] [facility] Team [employer]) OUTPATIENT [id number] Notes Entered by: JAGUAR CASTILLO 03 Mar 2013 0754 ------- ------- ------- ------- -- WALKIN- -Sore Throat AFSANEH ORLANDO 03/03 Sick at Home/Quarter s [facility](D over [facility] Team Hercule s) [facility]([place] [facility] [employer] OUTPATIENT [id number] sore throat congest MARISOL Leon 03/19 Released w/o Limitations [facility](D over [facility] Team Hercule s) [facility]) TELE CONSULT [id number] Notes Entered by: JYOTHI LA 08 May 2013 1547 ------- ------- ------- ------- -- In-proc JENNA Allen 05/08 [facility](Z [facility]_ Team A) [facility] A) TELE CONSULT [id number] Notes Entered by: KAPIL MARS 18 May 2013 0830 ------- ------- ------- ------- -- In-Proc ELGIN Leone 05/18 [employer](Z ZZNcirl ik_[facility]_ Team A) [facility] Medical Group(ZZ Ncirlik_F HC_Team A) TELE CONSULT [id number] Notes Entered by: Gaurav FRANCIS 09 Jun 2013 1327 ------- ------- ------- ------- -- ELGIN MOORE 06/09 [employer](Z ZZNcirl ik_[facility]_ Team A) [employer](ZZ Ncirlik_F HC_Team A) OUTPATIENT [id number] L knee pain w movemen t;blist ers on both hands,h as fluid,3 mos ELGIN BALDWIN 07/08 Released w/o Limitations [employer](Z ZZNcirl ik_[facility]_ Team A) [employer](ZZZ Ncirlik_F HC_Team A) OUTPATIENT [id number] pain during/ after ejac in testes; semen abnorma l color/l iquidit y ELGIN BALDWIN 07/22 Released w/o Limitations [employer](Z ZZNcirl ik_[facility]_ Team A) [employer](ZZZ Ncirlik_F HC_Team A) OUTPATIENT [id number] F/U Testicu lar Pain ELGIN BALDWIN 08/05 Released w/o Limitations [employer](Z ZZNcirl ik_FH_ Team A) [employer](ZZZ Ncirlik_F HC_Team A) TELE CONSULT [id number] Notes Entered by: Gaurav WHITE I 02 Jun 2014 1529 ------- ------- ------- ------- -- NISHA BELLO 06/02 [employer](Z ZZNcir ik_[facility]_ Team A) [employer]([facility] Team) OUTPATIENT [id number] pain in right ear KAPIL TUTTLE 08/24 Released w/o Limitations [employer](A [facility]) [employer]([facility] Team) OUTPATIENT [id number] sinus pain, pain going down into teeth KAPIL TUTTLE 08/27 Released w/o Limitations [employer](A [facility] Team) [facility] Medical Group(Med ical In/Out Processin g) TELE CONSULT [id number] Notes Entered by: LILIAN ALMENDAREZ 11 Sep 2014 1356 ------- ------- ------- ------- -- In Process ing LILIAN ALMENDAREZ 09/11 Medical Group(Tamera das In/Out Process ing) [facility] Group([facility] Team) OUTPATIENT [id number] growth on wrist JERMAINE DANG 01/25 Released w/o Limitations [employer](A [facility] Team) [facility] Group([facility] Team) OUTPATIENT [id number] head cold TADEO KRAUSE 05/27 Released w/o Limitations [employer](A [facility] Team) Medical Group(Pre ventive Health Assessmen ts) OUTPATIENT [id number] JEREMY RICOSHAGUFTARANDELL MANNING 05/31 Released w/o Limitations [employer](P reventi ve Health Assessm ents) [facility] Group([facility] Team) OUTPATIENT [id number] Knee pain TADEO KRAUSE 08/06 Released w/o Limitations [employer](A [facility] Team) [facility] Team) TELE CONSULT [id number] Notes Entered by: MIGUEL SCHULTE 16 Aug 2015 1309 ------- ------- ------- ------- -- Special ty CLARK Costa 08/16 Referred for Appointment Medical Group(A [facility] Team) Medical Group(Opt ometry Clinic) OUTPATIENT [id number] Eye exam SALIMA SUAREZ 08/19 Released w/o Limitations [employer](O ptometr y Clinic) Medical Group(Phy sical Therapy Clinic) OUTPATIENT [id number] Pain in right knee KAPIL ALFARO 08/23 Released w/o Limitations [facility](P hysical Therapy Clinic) [facility] Team) TELE CONSULT [id number] Notes Entered by: MISSY KRUEGER 09 Sep 2015 1347 ------- ------- ------- ------- -- MTF Physica l Therapy Results CE MALLORY 09/08 Medical Group(A [facility] Team) Medical Group(Phy sical Therapy Clinic) OUTPATIENT [id number] KAPIL ALFARO 09/13 Released w/o Limitations [facility](P hysical Therapy Clinic) [facility]) OUTPATIENT [id number] pre deploym ent...a PARISH Love 04/20 Released w/o Limitations [employer](D eployme nt Health Assessm ents) Medical Group(Sebastian glez Team) OUTPATIENT [id number] poss nasal infecti on TADEO KRAUSE 05/01 Released w/o Limitations [employer](Joseph muñoz Team) 28 [employer]([facility]) OUTPATIENT [id number] Notes Entered by: Zeenat WILLIS 01 May 2016 1125 ------- ------- ------- ------- -- predepl oyment brief NAVNEET WILLIS 05/01 Released w/o Limitations [facility]) [employer]([facility]) OUTPATIENT [id number] Notes Entered by: FANI SHELDON 21 Aug 2016 1012 ------- ------- ------- ------- -- PCS Record Review- [facility] CHELI SHELDON 08/21 Released w/o Limitations [facility] [employer]([facility]) OUTPATIENT [id number] Notes Entered by: Jasmina COPELAND 24 Aug 2016 0824 ------- ------- ------- ------- -- Tri-Ser vice PHA TADEO KRAUSE 08/24 Released w/o Limitations [facility]) [facility] [employer]([facility] Health Assessmen ts) OUTPATIENT [id number] Notes Entered by: Zeenat WILLIS 30 Nov 2016 1029 ------- ------- ------- ------- -- post malaria meds PARISH FRYE 11/30 Released w/o Limitations th Medical Group(D eployme nt Health Assessm ents) 28 [employer](Sebastian glez Team) OUTPATIENT [id number] Congest ion headach e, back and neck pain TADEO KRAUSE 12/01 Released w/o Limitations th Medical Group(Joseph muñoz Team) Medical Group(Sebastian glez Team) OUTPATIENT [id number] neck and lower back pain TADEO KRAUSE 12/12 Released w/o Limitations [employer](Joseph muñoz Team) [employer](Med ical In/Out Processin g) TELE CONSULT [id number] Notes Entered by: CHIARA CAMERON 11 Jan 2017 1043 ------- ------- ------- ------- -- Medical in/out process ing CHIARA CAMERON 01/11 Medical Group(M edical In/Out Process ing) Medical Group(Phy sical Therapy Clinic) OUTPATIENT [id number] Pain in right hip ANGELINA KAPIL Freedman 01/12 Released w/o Limitations [facility] Group(P hysical Therapy Clinic) Medical Group(Sebastian glez Team) OUTPATIENT [id number] painful lump on throat TADEO KRAUSE 01/23 Released w/o Limitations [employer](Joseph hoangcarmen Team) [facility](RSN Disenroll ment) TELE CONSULT [id number] Notes Entered by: JEN CARTER 28 Feb 2017 0950 ------- ------- ------- ------- -- IN/OUT PROCESS [facility]TON STRICKLAND [facility](Op [facility]ational [facility]) OUTPATIENT [id number] Tele DHA3 VAISHALI PATHAK 03/07 Released w/o Limitations [facility]( Operati onal Medicin e MG) [facility](Op erational Medicine MG) OUTPATIENT [id number] DUAL PHA/DHA 4; T-CON; [phone] VAISHALI PATHAK 10/02 Released w/o Limitations [facility]( Operati onal Medicin e [facility]) [facility](RSN Base OP Medicine Clinic) OUTPATIENT [id number] DRHA 1 ANTON SALINAS 10/12 Released w/o Limitations [facility] Base OP Medicin e Clinic) [facility] Mental Health) OUTPATIENT [id number] MARI Minor NALDO 10/29 Released w/o Limitations [facility] Mental Health) Theater Facility OUTPATIENT [id number] 7 Theater Provider 05/11 Released w/o Limitations Theater Facilit y [facility] Base OP Medicine Clinic) OUTPATIENT [id number] 5 [email or web address] DARREN VIGIL 09/10 Released w/o Limitations [facility] [place] OP Medicin e Clinic) [facility] 1 Cl MG) OUTPATIENT [id number] PHA ONLY JESUS DIAZ 09/11 Released w/o Limitations [facility]( [facility] Cl MG) [address] [place] [address] [facility] [place] [facility]Bas e Operation al Medicine Clin) TELE CONSULT [id number] Notes Entered by: FANI BROWN 02 Apr 2019 0727 ------- ------- ------- ------- -- JOÃO Elias 04/02 Other Not Elsewhere Classified [address] [place] [address] [place]ouard RIOS [facility]B ase Operati onal Medicin e Clin) [address] [place] [address] [facility] [facility])(War rior Op Med Cln Tm A Ad) OUTPATIENT [id number] nasal congest ion, facial pressur e, ear and teeth pain, cough SHANNON THOMAS 05/06 Released w/o Limitations [address] [place] [address] [place] RIOS [facility]W arrior Op Med Cln Tm A Ad) [address] [place] [address] [place] RIOS [facility])(Phy sical Therapy) OUTPATIENT [id number] R knee pain x 1 day, SHANON COTTRELL 08/13 Released w/o Limitations [address] [place] [address] [place] RIOS [facility])(P hysical Therapy ) [address] [place] [address] [place] GABRIEL [facility]Bas e Operation al Medicine Clin) OUTPATIENT [id number] WALKER MOURA 08/19 Released w/o Limitations [address] [place] [address] [place] [facility]B ase Operati onal Medicin e Clin) [address] [place] [address] Edouard [facility])(War rior Op Med Cln Tm A Ad) OUTPATIENT [id number] Redness around L eye, 229.288 6 MITCHEL CONNER 08/20 Released w/o Limitations [address] [place] [address] [facility] [facility])(W arrior Op Med Cln Tm A Ad) [address] [place] [address])(Bas e Operation al Medicine Clin) OUTPATIENT [id number] [facility] JENNA WILKS 08/21 Released w/o Limitations [address] [place] [address] ([facility])(B ase Operati onal Medicin e Clin) [address] [place] [address])(Phy sical Therapy) OUTPATIENT [id number] 2 right knee and ankle [phone] HARLEY VELIZ 05/24 Released w/o Limitations [address] [place] [address] [place] RIOS [facility]P hysical Therapy ) [address] [place] [address])(Phy sical Therapy) OUTPATIENT [id number] 2 knee/an kle HARLEY VELIZ 06/29 Released w/o Limitations [address] [place] [address] Edouard NISHANT ([facility])(P hysical Therapy ) [address] [place] [address])(Bas e Operation al Medicine Clin) OUTPATIENT [id number] Notes Entered by: FANI BROWN 26 Jul 2020 1351 ------- ------- ------- ------- -- [facility] EDOUARD Caceres 07/26 Released w/o Limitations [address] [place] [address] [place] [facility]B ase Operati onal Medicin e Clin) [address] [place] [address] Edouard [facility])(Bas e Operation al Medicine Clin) OUTPATIENT [id number] A WALKER MOURA 08/19 Released w/o Limitations [address] [place] [address] ([facility])(B ase Operati onal Medicin e Clin) [address] [place] [address] Ed[facility]ard [facility])(Bas e Operation al Medicine Clin) OUTPATIENT [id number] [facility] JEREMY THEODOREANTON Tamera 09/23 Released w/o Limitations [address] [place] [address] Edouard [facility] ([facility])(B ase Operati onal Medicin e Clin) [address] [place] [address] ([facility])(War rior Op Med Cln Tm A Ad) OUTPATIENT [id number] F2F Unexpla ined weight gain MITCHEL DENNIS Tamera 10/21 Released w/o Limitations [address] [place] [address] ([facility])(W arrior Op Med Cln Tm A Ad) Theater Facility OUTPATIENT [id number] Theater Provider 12/07 Released w/o Limitations Theater Facilit y [place]( Primary Care [facility]) OUTPATIENT [id number] Notes Entered by: Samantha STUART 17 Jan [id number] ------- ------- ------- ------- -- Bike Fall RACQUEL JACKSON 01/17 Released w/o Limitations [place](Prima ry Care [facility]) [place]( Primary Care [facility]) OUTPATIENT [id number] Notes Entered by: MARLA ALVAREZ 18 Jan 2021918 ------- ------- ------- ------- -- Injury F/U RACQUEL JACKSON 01/18 Released w/o Limitations [place](Prima ry Care [facility]) [place]( Primary Care [facility]) OUTPATIENT [id number] Notes Entered by: KIERA GUEVARA V 27 Jan 2021 0903 ------- ------- ------- ------- -- KIERA Bar V 01/27 Released with Work/Duty Limitations [place](Prim[facility] ry [facility]) [facility] [id number] Notes Entered by: PAOLA KIERA V 03 Feb 2021 1517 ------- ------- ------- ------- -- Klarissa GUEVARA, KIERA V 02/03 Released w/o Limitations [place]([facility]) [facility]( [facility]) OUTPATIENT [id number] Notes Entered by: LENNIE GUEVARAO V 10 Feb 2021 1521 ------- ------- ------- ------- -- Klarissa GUEVARA, KIERA V 02/10 Released w/o Limitations [place]([facility]) [facility]( [facility]) OUTPATIENT [id number] Notes Entered by: LENNIE GUEVARAO V 17 Feb 2021 1517 ------- ------- ------- ------- -- Klarissa GUEVARA, KIERA V 02/17 [facility]) [facility]( [facility]) OUTPATIENT [id number] Notes Entered by: LENNIE GUEVARAO V 25 Feb 2021 1022 ------- ------- ------- ------- -- Klarissa GUEVARA, KIERA V 02/25 Released w/o Limitations [place]([facility]) [facility]( [facility]) OUTPATIENT [id number] Notes Entered by: LENNIE GUEVARAO V 02 Mar 2021 0955 ------- ------- ------- ------- -- Klarissa GUEVARA, KIERA V 03/02 Released w/o Limitations [place]([facility]) [facility]( [facility]) OUTPATIENT [id number] Notes Entered by: KIERA GUEVARA V 11 Mar 2021 0923 ------- ------- ------- ------- -- Klarissa GUEVARA, KIERA V 03/11 [facility]ased [facility]/o Limitations [facility]) [facility]( [facility]) OUTPATIENT [id number] Notes Entered by: LENNIE GUEVARAO V 16 Mar 2021 0920 ------- ------- ------- ------- -- Klarissa GUEVARA, KIERA V 03/16 [facility]ased [facility]/o Limitations [facility]) [facility]( [facility]) OUTPATIENT [id number] Notes Entered by: KIERA GUEVARA V 21 Mar 2021 1752 ------- ------- ------- ------- -- Klarissa GUEVARA, KIERA V 03/21 [facility]ased [facility] Limitations [facility]) [facility]( [facility]) OUTPATIENT [id number] Notes Entered by: LENNIE GUEVARAO V 01 Apr 2021 1333 ------- ------- ------- ------- -- Klarissa GUEVARA, KIERA V 04/01 [facility]ased [facility]/o Limitations [facility]) [facility]( [facility]) OUTPATIENT [id number] Notes Entered by: KIERA GUEVARA V 07 Apr 2021 1254 ------- ------- ------- ------- -- Klarissa GUEVARA, KIERA V 04/07 Released w/o Limitations [place]([facility]) [place]([facility]) OUTPATIENT [id number] PHA/SAVI MONIQUE 09/28 Released w/o Limitations [place]([address]) [place]AB[place] _[facility]_Team _AD_Only) TELE CONSULT [id number] Notes Entered by: JOSE CHAMBERS 04 Oct 2021 0822 ------- ------- ------- ------- -- BP f/u and fasting labs RANDY BONE 10/03 Other Not Elsewhere Classified IN [place](AN DE_[facility]_ Team_AD _Only) [place]( Primary Care [facility]) TELE CONSULT [id number] Notes Entered by: DEJA RON 24 Nov 2021 1514 ------- ------- ------- ------- -- med NALDO Laguna 11/24 [place](Prima ry Care [facility]) [facility] Medical Group Edouard RIOS ([facility])(War rior Op Med Cln Tm A Ad) TELE CONSULT [id number] Notes Entered by: Tamera LINDSEY 21 Feb 2022 0730 ------- ------- ------- ------- -- Opt Referra l Night Time Driving /Simmon s/ REBECCA GUARDADO 02/21 Immediate Referral [address] [place] [address] Edouard RIOS ([facility])(W arrior Op Med Cln Tm A Ad) [address] [place] [address] Edouard DILLARDB ([facility])(Opt ometry) OUTPATIENT [id number] Notes Entered by: BRII GIBBS 10 Mar 2022 0823 ------- ------- ------- ------- -- Glasses Ordered BRII GIBBS 03/10 Released w/o Limitations [address] [place] [address] Group Edouard RIOS ([facility])(O ptometr y) [address] [place] [address])(War rior Op Med Cln Tm A Ad) OUTPATIENT [id number] F2F - left shoulde r discomf ort AUBREE STEWART 05/03 Released w/o Limitations [address] [place] [address])(W arrior Op Med Cln Tm A Ad) [address] [place] [address])(War rior Op Med Cln Tm A Ad) TELE CONSULT [id number] Notes Entered by: Tamera LINDSEY 09 May 2022 1009 ------- ------- ------- ------- -- Radiolo gy PT Referra robinson/Jose oates/ SHE ESQUIVEL 05/09 Referred for Appointment [address] [place] [address])(W arrior Op Med Cln Tm A Ad) [address] [place] [address])(War rior Op Med Cln Tm A Ad) OUTPATIENT [id number] MRI results review F2F DAVID VELÁSQUEZ 06/08 Released w/o Limitations [address] [place] [address])(W arrior Op Med Cln Tm A Ad) [address] [place] [address])(War rior Op Med Cln Tm A Ad) TELE CONSULT [id number] Notes Entered by: JENNIE LA 30 Jun 2022 1324 ------- ------- ------- ------- -- Network results Optomet ry 022 MAGDA INFANTE 06/[address] [place] [address])(W arrior Op Med Cln Tm A Ad) [address] [place] [address])(Phy sical Therapy) OUTPATIENT [id number] Pain in left shoulde r NOETOÑITO HONG G 07/03 Released w/o Limitations [address] [place] [address])(P hysical Therapy ) [address] [place] [address])(War rior Op Med Cln Tm A Ad) OUTPATIENT [id number] ears alyssa g, f2f appt CHANDLER DORSEY 07/11 Released w/o Limitations [address] [place] [address] Ed[place]ard RIOS [facility]W arrior Op Med Cln Tm A Ad) [address] [place] [address] Edouard [facility])(Sco tt [facility] Tm Blue) OUTPATIENT [id number] ACUP-IN ITIAL-L EFT SHOULDE R JENNA RIVERA 07/17 Released w/o Limitations [address] [place] [address] [place]ard [place] [facility]S cott [facility] Tm Blue) [address] [place] [address] Edouard [facility])(Phy sical Therapy) OUTPATIENT [id number] HONG CALABRESE 07/28 Released w/o Limitations [address] [place] [address] [place]ard [place] [facility])(P hysical Therapy ) [address] [place] [address] Ed[place]ard [facility])(Sco tt [facility] Tm Blue) OUTPATIENT [id number] ACUP/LE FT SHOULDE ANTON GOOD 08/21 Released w/o Limitations [address] [place] [address] Ed[place]ard [facility])(S cott [facility] Tm Blue) [address] [place] [address])(War rior Op Med Cln Tm A Ad) TELE CONSULT [id number] Notes Entered by: Zeenat BIRCH 23 Aug 2022 1341 ------- ------- ------- ------- -- Network results Audiolo gy 023 CHANDLER SMITH 08/[address] [place] [address] Ed[place]ard [facility])(W arrior Op Med Cln Tm A Ad) [address] [place] [address] Edouard [facility])(War rior Op Med Cln Tm A Ad) OUTPATIENT [id number] VIRTUAL A/[facility] . ELVIN GONZALEZ 09/13 Released w/o Limitations [address] [place] [address] Ed[place]ard RIOS [facility])(W arrior Op Med Cln Tm A Ad) [address] [place] [address] Edouard [facility])(Phy sical Therapy) OUTPATIENT [id number] f/u l. shouldHONG Ulrich 09/21 Released w/o Limitations [address] [place] [address] Edouard RISO ([facility])(P hysical Therapy ) [address] [place] [address] Edouard [facility])(War rior Op Med Cln Tm A Ad) TELE CONSULT [id number] Notes Entered by: JESSICA CARLOS 27 Sep 2022 1536 ------- ------- ------- ------- -- Appt Request - PHA F/U / Pat/ DEBRA BONE 09/27 Other Not Elsewhere Classified [address] [place] [address] Edouard RIOS [facility]W arrior Op Med Cln Tm A Ad) [address] [place] [address] [facility]Sco tt [facility] Tm Blue) OUTPATIENT [id number] ACUP/LE FT SHOULDDAGOBERTO ANGELO 10/20 Released w/o Limitations [address] [place] [address] Edouard RIOS [facility]S cott [facility] Tm Blue) [address] [place] [address] [facility]ard [facility]Phy [facility]ical Therapy) OUTPATIENT [id number] f/u l HONG Mccall 10/20 Released w/o Limitations [address] [place] [address] [facility] [facility]P [facility] ) [address] [place] [address] [facility] [facility]War rior Op Med Cln Tm A Ad) OUTPATIENT [id number] allergy sx,817. 7567 f2f appt CHANDLER DORSEY 11/13 Released w/o Limitations [address] [place] [address] [facility] [facility]W arrior Op Med Cln Tm A Ad) 0055H-375 th MEDGRP-[facility] [id number] WALKER CABALLERO 10/27 Discharge Disposition: Home or Self Care 0055H-3 75[address] MEDGRP [place] 0055C-375 th MEDGRP-[facility] [id number] Other specifi ed hypothy roistaceym SHANNON DALTON 11/03 Discharge Disposition: Home or Self Care 0055C-3 rossana [facility] Visit [id number] 11/05 Discharge Disposition: Home or Self Care 5C-3 rossana [facility] 5[facility]-375 th [facility] adelfo Between Visit [id number] 11/13 Discharge Disposition: Home or Self Care 5C-[address] [place], [place] [address]Jennifer Edouard 5C-375 th [facility]o Clinic [id number] EXAM, OCCUPAT IONAL, RETIREM ENT OR SEPARAT ION FROM [facility] , KATIE DALTON 12/04 Discharge Disposition: Home or Self Care - [address] [place] [address] Procedures Combined list of: 1) Procedures from Department of Veterans Affairs facilities going back up to thelast 18 months, not all VA non-surgical procedures are included; 2) All procedures from the Department of Defense facilities. Procedure Procedure Type Code Date Perfomer Comments Sourc e Destruction (eg, laser surgery, electrosurgery, cryosurgery, chemosurgery, surgical curettement), of flat warts, molluscum contagiosum, or milia; up to 14 lesions Destruction (eg, laser surgery, electrosurgery, cryosurgery, chemosurgery, surgical curettement), of flat warts, molluscum contagiosum, or milia; up to [address] [place] [address] Cryotherapy (CO2 slush, liquid N2) for acne Cryotherapy (CO2 slush, liquid N2) for acne [address] [place] [address] Closed treatment of shoulder dislocation, with manipulation; requiring anesthesia Closed treatment of shoulder dislocation, with manipulation; requiring anesthesia [address] [place] [address] Trimming of nondystrophic nails, any number Trimming of nondystrophic nails, any number [address] [place] [address] ADMINISTRATION OF PATIENT-FOCUSED HEALTH RISK ASSESSMENT INSTRUMENT (EG, HEALTH HAZARD APPRAISAL) WITH SCORING AND DOCUMENTATION, PER STANDARDIZED INSTRUMENT 2018 [facility] ONLINE ASSESS &MANAG SERV PROVIDE,A QUAL NONPHYS HCP TO AN ESTABLISHED PAT/GUARDIAN,NOT [facility]IG[facility]AT [facility] REL[facility] ASS[facility] &MANAG SERV PROVIDE W/IN THE PREV 7 DAYS,USE THE [employer] 2017 [facility] ADMINISTRATION OF PATIENT-FOCUSED HEALTH RISK ASSESSMENT INSTRUMENT (EG, HEALTH HAZARD APPRAISAL) WITH SCORING AND DOCUMENTATION, PER STANDARDIZED INSTRUMENT 2018 [facility] PSYCHIATRIC EVALUATION OF HOSPITAL RECORDS, OTHER PSYCHIATRIC REPORTS, PSYCHOMETRIC AND/OR PROJECTIVE TESTS, AND OTHER ACCUMULATED DATA FOR MEDICALDIAGNOSTIC PURPOSES 2017 [facility] HEALTH&BEHAV ASSESSMENT (EG, HEALTH-FOC CLINICAL INTERVIEW, BEHAVIORAL OBSERVATIONS, PSYCHOPHYSICOLOGICAL MONITOR, HEALTH-ORIENT QUESTIONNAIRES), EA 15 MIN [id number] W THE PATIENT; INIT ASSESSMENT 2016 [facility] PHYSICAL THERAPY RE-EVALUATION 2003 [facility] THERAPEUTIC PROCEDURE,1 OR MORE AREAS,EACH 15 MINUTES;NEUROMUSCULAR REEDUCATION OF MOVEMENT,BALANCE,COORDI NATION,KINESTHETIC SENSE,POSTURE,AND/OR PROPRIOCEPTION FOR SITTING AND/OR STANDING ACTIVITIES 2003 [facility] APPLICATION OF A MODALITY TO 1 OR MORE AREAS; ELECTRICAL STIMULATION (UNATTENDED) 2020 [facility] APPLICATION OF A MODALITY TO 1 OR MORE AREAS; VASOPNEUMATIC DEVICES 2020 [facility] MANUAL THERAPY TECHNIQUES (EG, MOBILIZATION/ MANIPULATION, MANUAL LYMPHATIC DRAINAGE, MANUAL TRACTION), 1 OR MORE REGIONS, EACH 15 MINUTES 2020 [facility] MANUAL THERAPY TECHNIQUES (EG, MOBILIZATION/ MANIPULATION, MANUAL LYMPHATIC DRAINAGE, MANUAL TRACTION), 1 OR MORE REGIONS, EACH 15 MINUTES 2020 [facility] MANUAL THERAPY TECHNIQUES (EG, MOBILIZATION/ MANIPULATION, MANUAL LYMPHATIC DRAINAGE, MANUAL TRACTION), 1 OR MORE REGIONS, EACH 15 MINUTES 2020 [facility] MANUAL THERAPY TECHNIQUES (EG, MOBILIZATION/ MANIPULATION, MANUAL LYMPHATIC DRAINAGE, MANUAL TRACTION), 1 OR MORE REGIONS, EACH 15 MINUTES 2020 [facility] MANUAL THERAPY TECHNIQUES (EG, MOBILIZATION/ MANIPULATION, MANUAL LYMPHATIC DRAINAGE, MANUAL TRACTION), 1 OR MORE REGIONS, EACH 15 MINUTES 2020 [facility] APPLICATION OF A MODALITY TO 1 OR MORE AREAS; VASOPNEUMATIC DEVICES 2020 [facility] APPLICATION OF A MODALITY TO 1 OR MORE AREAS; ELECTRICAL STIMULATION (UNATTENDED) 2020 [facility] PHYSICAL THERAPY EVALUATION:MODERATE COMPLEXITY,REQ:HIST PRES PROB,1-2 PERS FACT &/COMORB,IMPACT PLAN OF CARE;CLIN DECIS MAKING OF MOD COMPLEX,TYP,30 MIN ARE SPENT [id number] W THE PATIENT &/FAMILY 2020 [facility] CLOSED TREATMENT OF SHOULDER DISLOCATION, WITH MANIPULATION; REQUIRING ANESTHESIA 2020 [facility] TRIMMING OF NONDYSTROPHIC NAILS, ANY NUMBER 2007 [facility] VIS FUNCT SCREEN,AUTOMAT/SEMI-AUT OMAT BILAT QUANT DETERM VISUAL ACUITY,OCULAR ALIGN,COLOR VISION,PSEUDOISOCHROMAT PLATES,& FIELD VIS (MAY INC ALL/SOME SCRN DETERM FOR CONTRAST SENSITIV,VIS UND GLARE) 2007 [facility] SCREENING TEST, PURE TONE, AIR ONLY 2006 [facility] VIS FUNCT SCREEN,AUTOMAT/SEMI-AUT OMAT BILAT QUANT DETERM VISUAL ACUITY,OCULAR ALIGN,COLOR VISION,PSEUDOISOCHROMAT PLATES,& FIELD VIS (MAY INC ALL/SOME SCRN DETERM FOR CONTRAST SENSITIV,VIS UND GLARE) 2006 [facility] CRYOTHERAPY (CO2 SLUSH, LIQUID N2) FOR ACNE 2005 [facility] SCREENING TEST, PURE TONE, AIR ONLY 2005 [facility] SCREENING TEST OF VISUAL ACUITY, QUANTITATIVE, BILATERAL 2005 [facility] INFECTIOUS AGENT ANTIGEN DETECTION BY IMMUNOASSAY WITH DIRECT OPTICAL (IE, VISUAL) OBSERVATION; STREPTOCOCCUS, GROUP A 2012 [facility] PHYSICAL THERAPY RE-EVALUATION 2010 [facility] EXERCISE EQUIPMENT 2010 [facility] APPLICATION OF A MODALITY TO 1 OR MORE AREAS; HOT OR COLD PACKS 2010 [facility] APPLICATION OF A MODALITY TO 1 OR MORE AREAS; HOT OR COLD PACKS 2010 [facility] APPLICATION OF A MODALITY TO 1 OR MORE AREAS; HOT OR COLD PACKS 2010 [facility] APPLICATION OF A MODALITY TO 1 OR MORE AREAS; HOT OR COLD PACKS 2010 [facility] APPLICATION OF A MODALITY TO 1 OR MORE AREAS; HOT OR COLD PACKS 2010 [facility] APPLICATION OF A MODALITY TO 1 OR MORE AREAS; HOT OR COLD PACKS 2010 [facility] APPLICATION OF A MODALITY TO 1 OR MORE AREAS; HOT OR COLD PACKS 2010 [facility] APPLICATION OF A MODALITY TO 1 OR MORE AREAS; HOT OR COLD PACKS 2010 [facility] PHYSICAL THERAPY EVALUATION 2010 DoD TELE ASSESS & MGT SRV PROV QUAL NONPHYS HLTH CARE PRO TO EST PAT,PARENT,GUARD NOT ORIG REL ASSESS & MGT SRV PROV W/IN PREV 7 DAYS NOR LEAD ASSESS & MGT SRV/PX W/IN NXT 24 HR/SOON APT;5-10 MIN MED DIS 2021 DoD BRIEF COMM TECH-BASE SERV,E.G. VIRT CHK-IN,BY PHYS/OTH QUAL HCP,RPT E&M SERV,PROV TO EST PT,NOT ORIG FRM REL E/M SERV PROV W/IN PREV 7DAY NOR LEAD TO E/M SRV/PX W/IN NEXT 24HR/SOON CIRO; 5-10 MIN DISC 2021 [facility] THERAPEUTIC PROCEDURE,1 OR MORE AREAS,EACH 15 MINUTES;NEUROMUSCULAR REEDUCATION OF MOVEMENT,BALANCE,COORDI NATION,KINESTHETIC SENSE,POSTURE,AND/OR PROPRIOCEPTION FOR SITTING AND/OR STANDING ACTIVITIES 2022 [facility] RE-EVAL,PHYSICAL THERAPY EST PLAN OF CARE,REQ:EXAM,REV,HX & USE,STAND TESTS &JOSH REQ;REV PLAN OF CARE USING STAND PAT ASSESS INSTR &/JOSH ASSESS FUNC OUTCOME TYP,20 MIN SPENT [id number] W PAT&/FAM 2022 [facility] MANUAL THERAPY TECHNIQUES (EG, MOBILIZATION/ MANIPULATION, MANUAL LYMPHATIC DRAINAGE, MANUAL TRACTION), 1 OR MORE REGIONS, EACH 15 MINUTES 2022 Do[facility] BRIEF COMM TECH-BASE SERV,E.G. VIRT CHK-IN,BY PHYS/OTH QUAL HCP,RPT E&M SERV,PROV TO EST PT,NOT ORIG FRM REL E/M SERV PROV W/IN PREV 7DAY NOR LEAD TO E/M SRV/PX W/IN NEXT 24HR/SOON CIRO; 5-10 MIN DISC 2022 Do[facility] APPLICATION OF A MODALITY TO 1 OR MORE AREAS; TRACTION, MECHANICAL 2022 [facility] MANUAL THERAPY TECHNIQUES (EG, MOBILIZATION/ MANIPULATION, MANUAL LYMPHATIC DRAINAGE, MANUAL TRACTION), 1 OR MORE REGIONS, EACH 15 MINUTES 2022 DoD ACUPUNCTURE, 1 OR MORE NEEDLES; WITHOUT ELECTRICAL STIMULATION, INITIAL 15 MINUTES OF PERSONAL ONE-ON-ONE CONTACT WITH THE PATIENT 2022 [facility] MANUAL THERAPY TECHNIQUES (EG, MOBILIZATION/ MANIPULATION, MANUAL LYMPHATIC DRAINAGE, MANUAL TRACTION), 1 OR MORE REGIONS, EACH 15 MINUTES 2022 DoD TELE ASSESS & MGT SRV PROV QUAL NONPHYS HLTH CARE PRO TO EST PAT,PARENT,GUARD NOT ORIG REL ASSESS & MGT SRV PROV W/IN PREV 7 DAYS NOR LEAD ASSESS & MGT SRV/PX W/IN NXT 24 HR/SOON APT;5-10 MIN MED DIS 2021 DoD FITTING OF SPECTACLES, EXCEPT FOR APHAKIA; MONOFOCAL 2021 DoD TELE ASSESS & MGT SRV PROV QUAL NONPHYS HLTH CARE PRO TO EST PAT,PARENT,GUARD NOT ORIG REL ASSESS & MGT SRV PROV W/IN PREV 7 DAYS NOR LEAD ASSESS & MGT SRV/PX W/IN NXT 24 HR/SOON APT;5-10 MIN MED DIS 2021 DoD PSYCHIATRIC EVALUATION OF HOSPITAL RECORDS, OTHER PSYCHIATRIC REPORTS, PSYCHOMETRIC AND/OR PROJECTIVE TESTS, AND OTHER ACCUMULATED DATA FOR MEDICALDIAGNOSTIC PURPOSES 2020 [facility] BRIEF COMM TECH-BASE SERV,E.G. VIRT CHK-IN,BY PHYS/OTH QUAL HCP,RPT E&M SERV,PROV TO EST PT,NOT ORIG FRM REL E/M SERV PROV W/IN PREV 7DAY NOR LEAD TO E/M SRV/PX W/IN NEXT 24HR/SOON CIRO; 5-10 MIN DISC 2020 DoD ADMINISTRATION OF PATIENT-FOCUSED HEALTH RISK ASSESSMENT INSTRUMENT (EG, HEALTH HAZARD APPRAISAL) WITH SCORING AND DOCUMENTATION, PER STANDARDIZED INSTRUMENT 2020 [facility] THERAPEUTIC PROCEDURE, 1 OR MORE AREAS, EACH 15 MINUTES; THERAPEUTIC EXERCISES TO DEVELOP STRENGTH AND ENDURANCE, RANGE OF MOTION AND FLEXIBILITY 2020 [facility] THERAPEUTIC PROCEDURE, 1 OR MORE AREAS, EACH 15 MINUTES; THERAPEUTIC EXERCISES TO DEVELOP STRENGTH AND ENDURANCE, RANGE OF MOTION AND FLEXIBILITY 2019 DoD ADMINISTRATION OF PATIENT-FOCUSED HEALTH RISK ASSESSMENT INSTRUMENT (EG, HEALTH HAZARD APPRAISAL) WITH SCORING AND DOCUMENTATION, PER STANDARDIZED INSTRUMENT 2019 [facility] THERAPEUTIC PROCEDURE, 1 OR MORE AREAS, EACH 15 MINUTES; THERAPEUTIC EXERCISES TO DEVELOP STRENGTH AND ENDURANCE, RANGE OF MOTION AND FLEXIBILITY 2019 DoD THERAPEUTIC, PROPHYLACTIC, OR DIAGNOSTIC INJECTION (SPECIFY SUBSTANCE OR DRUG); SUBCUTANEOUS OR INTRAMUSCULAR 2013 [facility] THERAPEUTIC PROCEDURE, 1 OR MORE AREAS, EACH 15 MINUTES; THERAPEUTIC EXERCISES TO DEVELOP STRENGTH AND ENDURANCE, RANGE OF MOTION AND FLEXIBILITY 2016 DoD OSTEOPATHIC MANIPULATIVE TREATMENT (OMT); 3-4 BODY REGIONS INVOLVED 2016 DoD PSYCHIATRIC EVALUATION OF HOSPITAL RECORDS, OTHER PSYCHIATRIC REPORTS, PSYCHOMETRIC AND/OR PROJECTIVE TESTS, AND OTHER ACCUMULATED DATA FOR MEDICALDIAGNOSTIC PURPOSES 2016 [facility] ADMINISTRATION OF PATIENT-FOCUSED HEALTH RISK ASSESSMENT INSTRUMENT (EG, HEALTH HAZARD APPRAISAL) WITH SCORING AND DOCUMENTATION, PER STANDARDIZED INSTRUMENT 2016 [facility] NEUROPSYCHOLOGICAL TESTING (EG, [place] CARD SORTING TEST), ADMINISTERED BY A COMPUTER, WITH QUALIFIED HEALTH BARN WORKER INTERPRETATION AND REPORT 2015 [facility]D PSYCHIATRIC EVALUATION OF HOSPITAL RECORDS, OTHER PSYCHIATRIC REPORTS, PSYCHOMETRIC AND/OR PROJECTIVE TESTS, AND OTHER ACCUMULATED DATA FOR MEDICALDIAGNOSTIC PURPOSES 2015 [facility] THERAPEUTIC PROCEDURE, 1 OR MORE AREAS, EACH 15 MINUTES; GAIT TRAINING (INCLUDES STAIR CLIMBING) 2015 [facility] THERAPEUTIC PROCEDURE, 1 OR MORE AREAS, EACH 15 MINUTES; THERAPEUTIC EXERCISES TO DEVELOP STRENGTH AND ENDURANCE, RANGE OF MOTION AND FLEXIBILITY 2015 DoD FITTING OF SPECTACLES, EXCEPT FOR APHAKIA; MONOFOCAL 2015 DoD TELE ASSESS & MGT SRV PROV QUAL NONPHYS HLTH CARE PRO TO EST PAT,PARENT,GUARD NOT ORIG REL ASSESS & MGT SRV PROV W/IN PREV 7 DAYS NOR LEAD ASSESS & MGT SRV/PX W/IN NXT 24 HR/SOON APT;5-10 MIN MED DIS 2015 DoD DESTRUCTION (EG, LASER SURGERY, ELECTROSURGERY, CRYOSURGERY, CHEMOSURGERY, SURGICAL CURETTEMENT), OF BENIGN LESIONS OTHER THAN SKIN TAGS OR CUTANEOUS VASCULAR PROLIFERATIVE LESIONS; UP TO 14 LESIONS 2014 [facility] Modalities Cryotherapy Cold Packs Modalities Cryotherapy Cold Packs [id number] 2010 DENA GUADARRAMA [facility] Physical Therapy: ___ Se ion Segments, 15 Minutes Each Physical Therapy: ___ Session Segments, 15 Minutes Each [id number] 2010 DENA GUADARRAMA [facility] Modalities Cryotherapy Cold Packs Modalities Cryotherapy Cold Packs 85929 2010 GEORGE FALCON [facility] Physical Therapy: ___ Se ion Segments, 15 Minutes Each Physical Therapy: ___ Session Segments, 15 Minutes Each [id number] 2010 GEORGE FALCON [facility] Modalities Cryotherapy Cold Packs Modalities Cryotherapy Cold Packs 59771 2010 GEORGE FALCON [facility] Physical Therapy: ___ Se ion Segments, 15 Minutes Each Physical Therapy: ___ Session Segments, 15 Minutes Each 73555 2010 GEORGE FALCON [facility] Physical Therapy: ___ Se ion Segments, 15 Minutes Each Physical Therapy: ___ Session Segments, 15 Minutes Each [id number] 2010 GEORGE FALCON [facility] Modalities Cryotherapy Cold Packs Modalities Cryotherapy Cold Packs 28311 2010 GEORGE FALCON [facility] Modalities Cryotherapy Cold Packs Modalities Cryotherapy Cold Packs 74120 2010 DENA GUADARRAMA [facility] Physical Therapy: ___ Se ion Segments, 15 Minutes Each Physical Therapy: ___ Session Segments, 15 Minutes Each [id number] 2010 DENA GUADARRAMA [facility] Modalities Cryotherapy Cold Packs Modalities Cryotherapy Cold Packs 50914 2010 DENA GUADARRAMA [facility] Physical Therapy: ___ Se ion Segments, 15 Minutes Each Physical Therapy: ___ Session Segments, 15 Minutes Each 83057 2010 DENA GUADARRAMA [facility] Physical Therapy: ___ Se ion Segments, 15 Minutes Each Physical Therapy: ___ Session Segments, 15 Minutes Each 40110 2010 ALICIA ZENG [facility] Physical Medicine Physical Therapy Evaluation Physical Medicine Physical Therapy Evaluation 53264 2010 ALICIA ZENG [facility] Nails Trimming of Nondystrophic Nails Nails Trimming of Nondystrophic Nails 87454 2007 EDOUARD SILVA [facility] Visual Function Screening Visual Function Screening 14274 2007 JUDY LUCERO [facility] Audiogram (Screening) Audiogram (Screening) 63724 2006 GIRISH ENGLE [facility] Visual Function Screening Visual Function Screening 84086 2006 JUDY LUCERO [facility] Dermatological Surgery Cryotherapy Dermatological Surgery Cryotherapy 41192 2005 SHADIA GUERRERO [facility] Audiogram (Screening) Audiogram (Screening) 61725 2005 JESUS LIND [facility] Physical Medicine Physical Therapy Re-Evaluation Physical Medicine Physical Therapy Re-Evaluation 91230 2003 GEORGE KENNEDY [facility] Physical Therapy Neuromuscular Re-education Physical Therapy Neuromuscular Re-education 75202 2003 GEORGE KENNEDY [facility] PT A e ment Kinetic Training PT Assessment Kinetic Training 82991 2003 GEORGE KENNEDY [facility] Physical Medicine Physical Therapy Evaluation Physical Medicine Physical Therapy Evaluation 03948 2003 GEORGE KENNEDY [facility] Physical Therapy: ___ Se ion Segments, 15 Minutes Each Physical Therapy: ___ Session Segments, 15 Minutes Each 26085 2003 GEORGE KENNEDY [facility] Internet Med Svc Qual Nonphys Healthcare Prof Estab Patient Internet Med Svc Qual Nonphys Healthcare Prof Estab Patient 96027 2018 DARREN VIGIL [facility] Psychiatric Evaluation Review of Records and Reports Psychiatric Evaluation Review of Records and Reports 39649 2017 MARI MERRILL [facility] Psychometric Neuropsych Testing Battery Admin By Computer Psychometric Neuropsych Testing Battery Admin By Computer 76171 2017 MARI MERRILL [facility] Internet Med Svc Qual Nonphys Healthcare Prof Estab Patient Internet Med Svc Qual Nonphys Healthcare Prof Estab Patient 68682 2017 VAISHALI PATHAK [facility] Health And Behav A e mt Each 15 Min Initial A e ment Health And Behav Assessmt Each 15 Min Initial Assessment [id number] 2016 ANTON CARTER [facility] Physical Therapy: ___ Se ion Segments, 15 Minutes Each Physical Therapy: ___ Session Segments, 15 Minutes Each 06685 2016 KAPIL ALFARO Osteopathic Manip Treatment (OMT) 3-4 Body Regions Involved Osteopathic Manip Treatment (OMT) 3-4 Body Regions Involved 34726 2016 TADEO KRAUSE [facility] Psychiatric Evaluation Review of Records and Reports Psychiatric Evaluation Review of Records and Reports 87124 2016 ANTON HAIRSTON [facility] Psychometric Neuropsych Testing Battery Admin By Computer Psychometric Neuropsych Testing Battery Admin By Computer 01276 2015 JOÃO HILARIO [facility] Psychiatric Evaluation Review of Records and Reports Psychiatric Evaluation Review of Records and Reports 66352 2015 DERRICK NEUMANN [facility] Physical Therapy Gait Training Physical Therapy Gait Training 13228 2015 KAPIL ALFARO Physical Medicine Physical Therapy Re-Evaluation Physical Medicine Physical Therapy Re-Evaluation 27137 2015 KAPIL ALFARO Physical Therapy: ___ Se ion Segments, 15 Minutes Each Physical Therapy: ___ Session Segments, 15 Minutes Each 53152 2015 KAPIL ALFARO Physical Therapy Gait Training Physical Therapy Gait Training 28504 2015 KAPIL ALFARO Physical Medicine Physical Therapy Evaluation Physical Medicine Physical Therapy Evaluation 35486 2015 KAPIL ALFARO [employer] Services Fitting Monofocals (Not For Aphakia) [employer] [facility] Fitting Monofocals (Not For Aphakia) 89316 2015 SALIMA SUAREZ Order SV FOC [facility] Determination Of Refractive State Determination Of Refractive State 45158 2015 SALIMA SUAREZ Ophthalmological New Patient Start Comprehensive Care Ophthalmological New Patient Start Comprehensive Care 94836 2015 SALIMA SUAREZ [facility] Non-Physician Phone Call To Patient/Provider Brief (5-10min) Non-Physician Phone Call To Patient/Provider Brief (5-10min) 40714 2015 CLARK PICHARDO [facility] Destruction Of Flat Warts By Cryosurgery Up To 14 Lesions Destruction Of Flat Warts By Cryosurgery Up To 14 Lesions 72153 2014 JERMAINE DANG [facility] Supervised Injection Intramuscular Antibiotic Supervised Injection Intramuscular Antibiotic 35967 2013 ELGIN BALDWIN [facility] Rapid Antigen Identification Streptococcus Group A Beta Hemolytic Rapid Antigen Identification Streptococcus Group A Beta Hemolytic 79869 2012 MARISOL COREY [facility] Physical Medicine Physical Therapy Re-Evaluation Physical Medicine Physical Therapy Re-Evaluation 71567 2010 [facility] Exercise equipment 2010 [facility] Physical Therapy: ___ Se ion Segments, 15 Minutes Each Physical Therapy: ___ Session Segments, 15 Minutes Each 03970 2010 [facility] Physical Medicine Physical Therapy Re-Evaluation Physical Medicine Physical Therapy Re-Evaluation 26645 2010 [facility] Physical Therapy: ___ Se ion Segments, 15 Minutes Each Physical Therapy: ___ Session Segments, 15 Minutes Each 48665 2010 GEORGE FALCON [facility] Modalities Cryotherapy Cold Packs Modalities Cryotherapy Cold Packs 28182 2010 GEORGE FALCON [facility] Modalities Cryotherapy Cold Packs Modalities Cryotherapy Cold Packs 31727 2010 GEORGE FALCON [facility] Physical Therapy: ___ Se ion Segments, 15 Minutes Each Physical Therapy: ___ Session Segments, 15 Minutes Each 68239 2010 GEORGE FALCON [facility] Exercises A isted Exercises For ROM Exercises Assisted Exercises For ROM 83388 SHANON COTTRELL [facility] Physical Medicine Physical Therapy Re-Evaluation Physical Medicine Physical Therapy Re-Evaluation 27655 HARLEY VELIZ [facility] Brief communication technology-based service, e.g. virtual check-in, by a physician or other qualified health care profe gerard who can report evaluation and management services, provided to an established patient, not originating from a related E/M service provided within the previous 7 days nor leading to an E/M service or procedure within the next 24 hours or soonest available appointment; 5-10 minutes of medical discu ANTON Woo [facility] Psychiatric Evaluation Review of Records and Reports Psychiatric Evaluation Review of Records and Reports 64147 NBA WILLIS [facility] Non-Physician Phone Call To Patient/Provider Brief (5-10min) Non-Physician Phone Call To Patient/Provider Brief (5-10min) 75583 REBECCA GUARDADO [facility] Spectacles Services Fitting Monofocals (Not For Aphakia) [facility] [facility] Fitting Monofocals (Not For Aphakia) 05812 BRII GIBBS [facility] Mobilization Soft Ti ue Mobilization Sof t Tissue 19494 HONG CALABRESE [facility] Acupunct One Or More [place] W/O Stimulation Initial 15 Min Acupunct One Or More [place] W/O Stimulation Initial 15 Min 91001 BRENNAN ROMAN DoD Acupunct One Or More [place] W/ Stimulation Initial 15 Min Acupunct One Or More [place] W/ Stimulation Initial 15 Min 47808 ANTON ONOFRE DoD Modalities Traction Modalities Traction 97700 NWANTON KIRKPATRICK [facility] Physical Therapy Neuromuscular Re-education Physical Therapy Neuromuscular Re-education 20768 DAGOBERTO COOLEY [facility] Closed Treatment Shoulder Dislocation With Anesthesia Closed Treatment Shoulder Dislocation With Anesthesia 82691 RACQUEL JACKSON [facility] Modalities Electrical Stimulation Unattended Modalities Electrical Stimulation Unattended 77372 URTULA, KIERA V DoD Physical Therapy Mobilization Joint Physical Therapy Mobilization Joint 08235 URTULA, KIERA V DoD Modalities Vasopneumatic Device Modalities Vasopneumatic Device 06850 URTULA, KIERA V DoD Physical Therapy: ___ Se ion Segments, 15 Minutes Each Physical Therapy: ___ Session Segments, 15 Minutes Each 74118 URTULA, KIERA V DoD Social History Combined list of available smoking, tobacco, and other social history from Department of Defense and Veterans Affairs facilities. Social History Type Response Date Comment [facility] e Sex Representation Male (finding) 08/31/2022 Un known Organization Tobacco Cigarette use: Never-cigarette user. Other Tobacco use: Yes-current everyday other tobacco user (not cigarettes). Other Tobacco type: SNUS pouches (oral pouch no spit). [facility] Sexual Orientation [facility] Gender identity [facility] This section is an empty social history section. DoD Assessment and Plan Combined list of future care activities from Department of Defense and Veterans Affairs facilities (e.g., assessment and plan notes, appointments, orders, and referrals). Additional future care activities may be listed in the Plan of Care section. Result Assessment and Plan Date Source Assessment and Plan Extracted from:Title : [facility] Author: SHANNON KWOK PA, Family Medicine Date: 12/04/24 1. 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 M [facility] oncerns d ocumented on 2807. R eassuring vital signs and benign exam. S ee corresponding documentation ( DD Form 2807 &[id number]). C leared for separation. - F/u PRN The patient (is) World [employer] Qualified. AM Dispo: Non-Fly Cleared for AFSC/MOS Duties: Yes Cleared for continued service: Y es Cleared for mobility duties: Y es Cleared for participation in physical fitness program: Y es PHA/MHA/DRHA: U TD Visit deployment related: No Profile Reviewed N /A MEB in progress: N o IMR/ASIMS Status: Shannon Bellamy [place], [place] [address] Please note that this dictation was completed with computer voice recognition software, [employer]. Quite often unanticipated grammatical, syntax, homophones, and other interpretive errors are inadvertently transcribed by the computer software. Please disregard these errors and excuse any errors that have escaped final proofreading. If are any questions regarding documentation, please contact this provider directly. Extracted from:Title: [facility] Subclinical hypothyroid f/u Author: SHANNON KWOK PA, Family Medicine Date: 11/03/24 1. S ubclinical hypothyroidism 39 y/o M markus h ere for virtual appointment. Verified name and . Discussed the following: Patient following up to discuss recent thyroid lab results. TPO was within range and still evidence of subclinical hypothyroid. Discussed with patient that given TSH is below 10 would likely continue to monitor. Would recommend repeating TSH with reflex in 3 months prior to his separation. Will initiate levothyroxine if indicated. -Pt agrees with plan The patient (is) World [employer] Qualified. AM Dispo: Non-Fly Cleared for AFSC/MOS Duties: Yes Cleared for continued service: Y es Cleared for mobility duties: Y es Cleared for participation in physical fitness program: Y es PHA/MHA/DRHA: U TD Visit deployment related: No Profile Reviewed N /A MEB in progress: N o IMR/ASIMS Status: Shannon Bellamy, [employer]st [employer], [place] [address] Please note that this dictation was completed with computer voice recognition software, [employer]. Quite often unanticipated grammatical, syntax, homophones, and other interpretive errors are inadvertently transcribed by the computer software. Please disregard these errors and excuse any errors that have escaped final proofreading. If are any questions regarding documentation, please contact this provider directly. Extracted from:Title: [facility] Med f/u Author: SHANNON KWOK PA, Family Medicine Date: 10/13/24 1. A nxiety disorder, unspecified 39-year-old male presents to clinic to follow-up on medication. Patient has been taking at 20 mg Lexapro for the past 4 weeks. He states since increasing his dosage he has noticed increased erectile dysfunction. States medication otherwise is doing really well with his symptoms. Denies any SI/HI at this time. PLAN: - Recommended waiting and seeing if the erectile dysfunction improves after 2-3 weeks - If EGD is persisting will add on Wellbutrin - Rx: e scitalopram (Lexapro). Discussed ADRs: lethargy, decreased libido, GI upset, etc. Cautioned regarding withdrawal symptoms if medication is stopped abruptly without taper. - Advised patient to go to ER immediately for SI/HI/morbid ideation. - Follow up in clinic: 6-8 weeks or earlier if needed. - All questions answered. Patient verbalized understanding and agreed with plan. Ordered: escitalopram(escitalopram 20 mg oral tablet), 1 tab(s), Oral, Daily, # 90 tab(s), 1 total refill(s), Maintenance, Pharmacy: [facility] [Not filled] 2. S ubclinical hypothyroidism Patient has history of subclinical hypothyroidism. He was recommended by door and arrival attendant to make sure he does not have Orin's or an autoimmune thyroiditis. -We will recheck TSH as well as a TPO -If TPO is elevated or TSH is above 10 consider initiating levothyroxine -Patient in follow-up as needed Ordered: Thyroid Peroxidase Antibodies TSH w/ Reflex FT4 and Total T3 3. 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 Patient states he had HPV around his rectum when he was younger and was treated and has not returned since then. He does not recall the subtypes of HPV. He denies any recurrence of symptoms since then. Discussed with patient that typically after the age of 27 and it is not recommended to have the HPV vaccine. Also the vaccination will have no therapeutic effect on pre-existing HPV infections or HPV associated diseases. Recommended follow-up if recurrence of symptoms to get seen by dermatology and sample area to ensure it is not 16/18. Patient agrees with plan The patient (is) World Wide Qualified. AM Dispo: Non-Fly Cleared for AFSC/MOS Duties: Yes Cleared for continued service: Y es Cleared for mobility duties: Y es Cleared for participation in physical fitness program: Y es PHA/MHA/DRHA: U TD Visit deployment related: No Profile Reviewed N /A MEB in progress: N o IMR/ASIMS Status: Shannon Bellamy, 1st Lt, [place] [address] Please note that this dictation was completed with computer voice recognition software, [employer]. Quite often unanticipated grammatical, syntax, homophones, and other interpretive errors are inadvertently transcribed by the computer software. Please disregard these errors and excuse any errors that have escaped final proofreading. If are any questions regarding documentation, please contact this provider directly. Extracted from:Title: [facility] Author: JUNAID BEJARANO NP, Primary Care Date: 09/29/24 Encounter for issue of other medical certificate Reviewed and assessed IMR status, discussed any/all deficiencies and how to rectify them where applicable. Reviewed any profiles including duty-limiting and/or deployment-limiting conditions, see PHA/MHA documentation for additional detail. Provided age and gender specific, evidence-based preventative health information and recommendations in accordance with USPSTF recommendations. Assessed currency of required occupational and environmental health evaluations and exams. SM reports not due for special duty physical at this time and this is consistent with available documentation on chart review. E nsured deployment-related health assessments up to date. Reviewed and assessed r esponses to screening tools: AUDIT-C: 4 . N o elevated risk f or alcohol disorder. PTSD screenin. E levated score, h owever pt already following with BH and denies current SI/HI at this time. Pt agrees to f/u with BH as planned. Depression Screenin. E levated risk but following with BH and denies SI/HI at this time. Will f/u with as planned. C-SSRS: No elevated risk Counseled SM on available resources ( [employer], [employer], walk-in BH, walk-in ER, 911, 's chain of command, etc.) and how to contact them if needed. SM verbalized understanding and agrees to contact if needed. S M denies suicidal and/or homicidal ideations. Current concerns/complaints identified while conducting the PHA and MHA addressed and counseled SM to follow up with PCM for further evaluation/treatment. See PHA/MHA documentation for additional information. Greater than 2 0 m inutes total time spent interviewing and counseling patient/slot service specialist as well as reviewing and updating patient record. Extracted from:Title: [facility] LBP Author: SHANNON KWOK PA, Family Medicine Date: 08/22/24 1. B ack pain 39-year-old male presents to clinic with recurring mid back pain/low back pain. Patient states he gets massages every 2 months for his back pain. He states that earlier this week he was having mid back pain that that hurt with deep breathing but symptoms have since resolved. He states that now symptoms are more on his lower back have bilateral paraspinous muscles. Patient denies any trauma to the area. Patient denies any low back red flag symptoms at this time.? On exam no midline tenderness to palpation but notable muscle spasms on bilateral lower back. -Trial of Flexeril 10 mg tabs nightly over the next few days -Can continue taking naproxen during the day -Rx lidocaine patches to use at night -Recommended stretching/strengthening and heating as needed -Will refer to physical therapy to work on range of motion for her lower back and legs -Patient in follow-up in 6-8 weeks or sooner if needed -ER p recautions if any red flag symptoms o ccur Ordered: cyclobenzaprine(cyclobenzaprine 10 mg oral tablet), 1 tab(s), Oral, every day at bedtime, # 21 tab(s), 0 total refill(s), Acute, Pharmacy: [facility] [Last filled 08/22/24] lidocaine topical(lidocaine 5% topical patch), 1 patch(es), Topical, Daily, Leave on for up to 12 hours within a 24 hour period (12 hours on, 12 hours off), # 30 patch(es), 3 total refill(s), Maintenance, Pharmacy: [facility] [Federal Rx: #30 last filled 08/22/24] Referral Request 2.0 - DoD 2. A nxiety disorder, unspecified Patient also noted that he was running low on his Lexapro 10 mg. He states that he has not felt any changes to symptoms and feels in some ways his anxiety has increased a bit. Pt has been on lexapro f or about 4wks. Denies SI/HI at this time. -Will increase lexapro to 2 0mg daily -Patient understands side effects of medication -ER precautions if SI/HI -Pt to f/u in 4-6wks or sooner if needed Ordered: escitalopram(escitalopram 20 mg oral tablet), 1 tab(s), Oral, Daily, # 60 tab(s), 0 total refill(s), Maintenance, Pharmacy: [facility] [Last filled 08/22/24] The patient (is) World Wide Qualified. AM Dispo: Non-Fly Cleared for AFSC/MOS Duties: Yes Cleared for continued service: Y es Cleared for mobility duties: Y es Cleared for participation in physical fitness program: Y es PHA/MHA/DRHA: U TD Visit deployment related: No Profile Reviewed N /A MEB in progress: N o IMR/ASIMS Status: Shannon Bellamy, 1st Lt, [place] [address] Please note that this dictation was completed with computer voice recognition software, [employer]. Quite often unanticipated grammatical, syntax, homophones, and other interpretive errors are inadvertently transcribed by the computer software. Please disregard these errors and excuse any errors that have escaped final proofreading. If are any questions regarding documentation, please contact this provider directly. Extracted from:Title: [facility] Lab f/u/HPI Form/MH Author: SHANNON KWOK PA Date: 07/02/24 1. S ubclinical hypothyroidism 38 y /o M p resents to clinic for lab f/u. Patient's most recent thyroid labs showed evidence of subclinical hypothyroidism. Patient states some increased fatigue as well as dry patches o n skin. He denies cold intolerance or constipation at this time. -we will recheck T SH/T3-T4 -Discussed possibility of treating with levothyroxine if T SH is elevated above 7 -Patient to follow-up after labs are completed Ordered: TSH w/ Reflex FT4 and Total T3 2. P lantar fasciitis Patient also needing HPI form completed for upcoming plantar fascial r elease on his right foot. Patient has been dealing with plantar fasciitis for several years and has tried physical therapy and s hoe inserts. patient has no current concerns of surgery. Patient has no personal history of any cardiovascular diseases/diabetes/pulmonary diseases. -no concerning f indings on P E that would indicate further risk stratification -Form completed and returned to pt -f/u with surgical team for post-op appointments -f/u if any concerns 3. A nxiety p atient currently sees behavioral health at [facility] and was recommended to trial anxiety medication for issues with sleep/anxiety. Patient states that he has trouble staying asleep most nights and will wake up multiple times and have trouble falling back asleep due to for thinking things. He states that his anxiety also occurs 2 to his work life. He is open to starting an SSRI. N o concern for SI/HI at this appointment. ALEC-7: G AD2 Score: 2 Score GAD7 Score: 1 0 Score H igh GAD7 Problem Severity: Somewhat difficult PHQ-9: I nitial Depression Screen Score: 0 Score PLAN: - Rx: e scitalopram (Lexapro). Discussed ADRs: lethargy, decreased libido, GI upset, etc. Cautioned regarding withdrawal symptoms if medication is stopped abruptly without taper. - Advised patient to go to ER immediately for SI/HI/morbid ideation. - Follow up in clinic: 6-8 weeks or earlier if needed. - All questions answered. Patient verbalized understanding and agreed with plan. Ordered: escitalopram(escitalopram 10 mg oral tablet), See Instructions, Oral, take one-half tablet by mouth every day for 7 days, then take one tablet every day for anxiety, # 85 tab(s), 0 total refill(s), Maintenance, 90 days, take one-half tablet by mouth every day for 7 days, then take one tablet ev... 4. A llergic rhinitis Chronic condition. Well controlled. No other concerns. -Will continue current medication regimen -f/u as needed Orders: alfuzosin(alfuzosin 10 mg oral tablet, extended release), 1 tab(s), Oral, Daily, # 90 tab(s), 3 total refill(s), Maintenance, 1 tab(s) Oral Daily, Pharmacy: [facility] [Not filled] cetirizine(ZyrTEC 10 mg oral tablet), 1 tab(s), Oral, Daily, PRN allergy symptoms, # 90 tab(s), 3 total refill(s), Maintenance, 1 tab(s) Oral Daily,PRN:allergy symptoms, Pharmacy: [facility] [Not filled] The patient (is) World Wide Qualified. AM Dispo: Non-Fly Cleared for AFSC/MOS Duties: Yes Cleared for continued service: Y es Cleared for mobility duties: Y es Cleared for participation in physical fitness program: Y es PHA/MHA/DRHA: U TD Visit deployment related: No Profile Reviewed N /A MEB in progress: N o IMR/ASIMS Status: Shannon Bellamy, 1st Lt, [place] [address] Please note that this dictation was completed with computer voice recognition software, [employer]. Quite often unanticipated grammatical, syntax, homophones, and other interpretive errors are inadvertently transcribed by the computer software. Please disregard these errors and excuse any errors that have escaped final proofreading. If are any questions regarding documentation, please contact this provider directly. Extracted from:Title: [facility] Multiple Concerns Author: MAGDA BAINS PA Date: 05/12/24 1. L eft testicular pain 38 y/o male with acute L scrotal pain. Reassuring vital signs. On exam anterosuperior testicular pain with TTP. Suspect torsion of appendix testis. Complete ultrasound to exclude testicular torsion as well as UA. - Recommend application of ice and use of Tylenol/ibuprofen for pain relief - Reviewed ER precautions - F/u to review imaging/lab results Ordered: ibuprofen(ibuprofen 600 mg oral tablet), 1 tab(s), Oral, every 8 hr, PRN pain (moderate), X 30 days, # 90 tab(s), 0 total refill(s), Acute, 06/11/2024, 1 tab(s) Oral every 8 hr,x30 days,PRN:pain (moderate), Pharmacy: [facility] [Last filled 05/12/24] acetaminophen(Tylenol 325 mg oral tablet), 1 tab(s), Oral, every 4 hr, PRN pain or fever, X 10 days, # 50 tab(s), 0 total refill(s), Acute, 05/22/2024, 1 tab(s) Oral every 4 hr,x10 days,PRN:pain or fever, Pharmacy: [facility] [Last filled 05/12/24] Urinalysis with Microscopic and Culture if Indicated US Scrotum (Contents) w/ Doppler if ind 2. P ain of bilateral hands 38 y/o male with bilateral PIP joint pain despite physical therapy. Negative inflammatory markers. Complete plain films to evaluate for degenerative changes - Follow-up to review imaging results Ordered: ibuprofen(ibuprofen 600 mg oral tablet), 1 tab(s), Oral, every 8 hr, PRN pain (moderate), X 30 days, # 90 tab(s), 0 total refill(s), Acute, 06/11/2024, 1 tab(s) Oral every 8 hr,x30 days,PRN:pain (moderate), Pharmacy: [facility] [Last filled 05/12/24] acetaminophen(Tylenol 325 mg oral tablet), 1 tab(s), Oral, every 4 hr, PRN pain or fever, X 10 days, # 50 tab(s), 0 total refill(s), Acute, 05/22/2024, 1 tab(s) Oral every 4 hr,x10 days,PRN:pain or fever, Pharmacy: [facility] [Last filled 05/12/24] 3. H yperlipidemia Est d x. >50% decrease in LDL with high intensity statin therapy. Continue atorvastatin 40 mg indefinitely - Reviewed diet/exercise, impact of weight loss - Repeat lipid screening in 12 months Orders: XR Hand Complete 3+ Views Left XR Hand Complete 3+ Views Right The patient (is) World Wide Qualified. AM Dispo: Non-Fly Cleared for AFSC/MOS Duties: Y es Cleared for continued service: Yes Cleared for mobility duties: Yes Cleared for participation in physical fitness program: Yes PHA/MHA/DRHA: UTD Visit deployment related: No Profile Reviewed N/A MEB in progress: No IMR/ASIMS Status: Jefferson Bains BSC, PA-C [facility] ([facility]) Edouard RIOS Please note that this dictation was completed with computer voice recognition software, [employer]. Quite often unanticipated grammatical, syntax, homophones, and other interpretive errors are inadvertently transcribed by the computer software. Please disregard these errors and excuse any errors that have escaped final proofreading. If are any questions regarding documentation, please contact this provider directly. Extracted from:Title: [facility] HLD Author: AMARA VEGA, Date: 01/10/24 HLD - Hyperlipidemia Acute, u ncontrolled -Statin therpay indicated: Yes -LDL goal: <100 (high risk) - Initiate s tatin therapy: A torvastatin 40mg. - Labs: [X] Rcheck lipid profile 6-8 weeks after starting statin, and then annually - Cardiovascular: [X] BP at goal (<130/80 per AHA/ACC guidelines) - Lifestyle Modifications: [_] Physical activity: encouraged increased activity with goal of 150min moderate exertion weekly [_] Sleep: reviewed sleep hygiene; goal of 6-8hr/night [_] Behavioral modification: pt has good social support INITIATING STATIN THERAPY: Per 2019 ACC/AHA Guidelines: - I nitiate therapy if A [place] of the following are present: [X] Age 20-75 and LDL > 190 [_] Age 40-75 and T2DM [_] Age 40-75 and ASCV risk > 7.5% [_] Prior history of SD or CVA The patient (is ) World Wide Qualified. 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 Visit deployment related: N o Profile Reviewed MEB in progress: No IMR/ASIMS Status: [X] Green (no action), Member aware. Ordered: Lipid Panel Orders: atorvastatin(atorvastatin 40 mg oral tablet), 1 tab(s), Oral, Daily, for cholesterol, # 90 tab(s), 3 total refill(s), Maintenance, 1 tab(s) Oral Daily,Instr:for cholesterol, Pharmacy: [facility] [Not filled] Capt Ramírez DO, [place] Family Physician [facility]/Safety Tech [facility] in [place], [place] [address] [address] Extracted from:Title: [facility]: bilateral hand pain Author: DAVID VELÁSQUEZ MD Date: 11/28/23 1. 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 No significant trauma or systemic disease noted that could be contributing to the symptoms. Additionally likely has some tendinopathy causing aching in dorsal surface of bilateral hands. - Recommend the patient to avoid activities that could exacerbate the condition, such as leaning on the elbow or repetitive elbow bending, encoruaged trial of splint - C ontinue N SAIDs PRN - Referred to OT for nerve glide exercises - f/u in 6-8 weeks if no improvement with OT - consider imaging at that time Ordered: Referral Request 2.0 - DoD 2. P ain in right hand See plan for ulnar neuropathy as above, bilateral ulnar neuropathy likely. Ordered: Referral Request 2.0 - DoD The patient (is ) World Wide Qualified. 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 Visit deployment related: N o Profile Reviewed MEB in progress: No IMR/ASIMS Status: [X] Green (no action), Member aware. Patient aware to call 911 or go to the nearest emergency room/urgent care for any urgent/emergent concerns or call and leave message with the clinic for any other concerns. Patient can also access [employer] at [email or web address] to leave message with PCM Team. Please note that this dictation was completed with [employer] dictation microphone and software and unintentional errors may be present. Efforts were made to check spelling and grammatical errors. I f there are questions about the note please do not hesitate to ask. Tamera Penny Sales Representative Graphic Art Physician, PGY-3 [facility], [facility] [place], [place] Extracted from:Title: [facility] Virtual MHA/PHA Author: KALI DONOVAN MD Date: 10/05/23 1. 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 Triage with [facility] Sep 28, reviewed resources, plan is f/u with POS and follow up with MH as needed. Discussed additional resources availabls Palpitations. Discussed ER criteria. Plan on repeat lipids, sleep study ordered, address anxiety, and f/u with PCM if continuing. To see PCM sooner if worsening sx or acute concerns. Reviewed slot service specialist's PHAQ and EHR for the past twelve months t o include r eported height, weight, current medical conditions and deployment related health problems, traumatic brain injury screening, m edications, allergies, i mmunizations, medical readiness laboratory tests and occupational health records. Completed screenings and provided patient education as appropriate. MHA completed in ASIMS and copied to this record. Traveling Missionary is aware of services available (911, [phone], [employer], MF, [employer], B , , embedded squadron resources, e mergency room, first shirt or others in enrique of command, etc) and how to contact them if needed. Traveling Missionary denies suicidal and homicidal ideation. Preventative services reviewed and discussed per age, race, and gender. Reviewed immunization history and assessed immunization status. Reviewed physical activity, s exual risk factors and previous STD testing date, including HIV. Reviewed readiness labs and occupational health examinations required. Compared medications reported by Traveling Missionary to active medication list in [facility] and any variances were reconciled. Time spent in pt care, counseling and reviewing chart was approximately 2 0min. Patient informed PHA complete and ASIMS updated. Any complaints or issues identified while conducting the PHA have been addressed and/or the slot service specialist was instructed to return to their PCM for care. //SIGNED// KALI DONOVAN, [employer], [employer], MC, FS Family Physician/Flight Surgeon Phase 2 Medical Readiness Cell 2. H yperlipidemia 2020 VHX=284, Mild HLP, not in statin benefit but overdue for 1 year repeat abnormal Fasting lipids ordered, counseled if stable will not be contacted but encouraged to view through Marisela f/u with PCM annually, sooner as needed 12/10/2024 [id number] MEDTeodora Assessment and Plan Ext[facility] : [facility] Author: SHANNON KWOK PA, Family Medicine Date: 12/04/24 1. E XAM, OCCUPATIONAL, HALF-WAY OR SEPARATION FROM [employer], LONG 29 y /o ADAF male presents for separation physical. M cindy baez oncerns d ocumented on 2806. R eassuring vital signs and benign exam. S ee corresponding documentation ( DD Form 2807 &[id number]). C leared for separation. - F/u PRN The patient (is) World Wide Qualified. AM Dispo: Non-Fly Cleared for AFSC/MOS Duties: Yes Cleared for continued service: Y es Cleared for mobility duties: Y es Cleared for participation in physical fitness program: Y es PHA/MHA/DRHA: U TD Visit deployment related: No Profile Reviewed N /A MEB in progress: N o IMR/ASIMS Status: Shannon Bellamy, Capt, [place] [address] Please note that this dictation was completed with computer voice recognition software, [employer]. Quite often unanticipated grammatical, syntax, homophones, and other interpretive errors are inadvertently transcribed by the computer software. Please disregard these errors and excuse any errors that have escaped final proofreading. If are any questions regarding documentation, please contact this provider directly. Extracted from:Title: [facility] Subclinical hypothyroid f/u Author: SHANNON KWOK PA, Family Medicine Date: 11/03/24 1. S ubclinical hypothyroidism 39 y/o M markus h ere for virtual appointment. Verified name and . Discussed the following: Patient following up to discuss recent thyroid lab results. TPO was within range and still evidence of subclinical hypothyroid. Discussed with patient that given TSH is below 10 would likely continue to monitor. Would recommend repeating TSH with reflex in 3 months prior to his separation. Will initiate levothyroxine if indicated. -Pt agrees with plan The patient (is) World Wide Qualified. AM Dispo: Non-Fly Cleared for AFSC/MOS Duties: Yes Cleared for continued service: Y es Cleared for mobility duties: Y es Cleared for participation in physical fitness program: Y es PHA/MHA/DRHA: U TD Visit deployment related: No Profile Reviewed N /A MEB in progress: N o IMR/ASIMS Status: Shannon Bellamy, 1st [employer], [place] [address] Please note that this dictation was completed with computer voice recognition software, [employer]. Quite often unanticipated grammatical, syntax, homophones, and other interpretive errors are inadvertently transcribed by the computer software. Please disregard these errors and excuse any errors that have escaped final proofreading. If are any questions regarding documentation, please contact this provider directly. Extracted from:Title: [facility] Med f/u Author: SHANNON KWOK PA, Family Medicine Date: 10/13/24 1. A nxiety disorder, unspecified 39-year-old male presents to clinic to follow-up on medication. Patient has been taking at 20 mg Lexapro for the past 4 weeks. He states since increasing his dosage he has noticed increased erectile dysfunction. States medication otherwise is doing really well with his symptoms. Denies any SI/HI at this time. PLAN: - Recommended waiting and seeing if the erectile dysfunction improves after 2-3 weeks - If EGD is persisting will add on Wellbutrin - Rx: e scitalopram (Lexapro). Discussed ADRs: lethargy, decreased libido, GI upset, etc. Cautioned regarding withdrawal symptoms if medication is stopped abruptly without taper. - Advised patient to go to ER immediately for SI/HI/morbid ideation. - Follow up in clinic: 6-8 weeks or earlier if needed. - All questions answered. Patient verbalized understanding and agreed with plan. Ordered: escitalopram(escitalopram 20 mg oral tablet), 1 tab(s), Oral, Daily, # 90 tab(s), 1 total refill(s), Maintenance, Pharmacy: [facility] [Not filled] 2. S ubclinical hypothyroidism Patient has history of subclinical hypothyroidism. He was recommended by door and arrival attendant to make sure he does not have Orin's or an autoimmune thyroiditis. -We will recheck TSH as well as a TPO -If TPO is elevated or TSH is above 10 consider initiating levothyroxine -Patient in follow-up as needed Ordered: Thyroid Peroxidase Antibodies TSH w/ Reflex FT4 and Total T3 3. 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 Patient states he had HPV around his rectum when he was younger and was treated and has not returned since then. He does not recall the subtypes of HPV. He denies any recurrence of symptoms since then. Discussed with patient that typically after the age of 27 and it is not recommended to have the HPV vaccine. Also the vaccination will have no therapeutic effect on pre-existing HPV infections or HPV associated diseases. Recommended follow-up if recurrence of symptoms to get seen by dermatology and sample area to ensure it is not 16/18. Patient agrees with plan The patient (is) World Wide Qualified. AM Dispo: Non-Fly Cleared for AFSC/MOS Duties: Yes Cleared for continued service: Y es Cleared for mobility duties: Y es Cleared for participation in physical fitness program: Y es PHA/MHA/DRHA: U TD Visit deployment related: No Profile Reviewed N /A MEB in progress: N o IMR/ASIMS Status: Shannon Bellamy, 1st Lt, [place] [address] Please note that this dictation was completed with computer voice recognition software, [employer]. Quite often unanticipated grammatical, syntax, homophones, and other interpretive errors are inadvertently transcribed by the computer software. Please disregard these errors and excuse any errors that have escaped final proofreading. If are any questions regarding documentation, please contact this provider directly. Extracted from:Title: Virtual MHA/PHA [facility] Author: JUNAID BEJARAON NP, Primary Care Date: 09/29/24 Encounter for issue of other medical certificate Reviewed and assessed IMR status, discussed any/all deficiencies and how to rectify them where applicable. Reviewed any profiles including duty-limiting and/or deployment-limiting conditions, see PHA/MHA documentation for additional detail. Provided age and gender specific, evidence-based preventative health information and recommendations in accordance with USPSTF recommendations. Assessed currency of required occupational and environmental health evaluations and exams. SM reports not due for special duty physical at this time and this is consistent with available documentation on chart review. E nsured deployment-related health assessments up to date. Reviewed and assessed r esponses to screening tools: AUDIT-C: 4 . N o elevated risk f or alcohol disorder. PTSD screenin. E levated score, h owever pt already following with BH and denies current SI/HI at this time. Pt agrees to f/u with as planned. Depression Screenin. E levated risk but following with BH and denies SI/HI at this time. Will f/u with BH as planned. C-SSRS: No elevated risk Counseled SM on available resources ( [employer], [employer], walk-in , walk-in ER, 911, 's chain of command, etc.) and how to contact them if needed. SM verbalized understanding and agrees to contact if needed. S M denies suicidal and/or homicidal ideations. Current concerns/complaints identified while conducting the PHA and MHA addressed and counseled SM to follow up with PCM for further evaluation/treatment. See PHA/MHA documentation for additional information. Greater than 2 0 m inutes total time spent interviewing and counseling patient/slot service specialist as well as reviewing and updating patient record. Extracted from:Title: [facility] LBP Author: SHANNON KWOK PA, Family Medicine Date: 08/22/24 1. B ack pain 39-year-old male presents to clinic with recurring mid back pain/low back pain. Patient states he gets massages every 2 months for his back pain. He states that earlier this week he was having mid back pain that that hurt with deep breathing but symptoms have since resolved. He states that now symptoms are more on his lower back have bilateral paraspinous muscles. Patient denies any trauma to the area. Patient denies any low back red flag symptoms at this time.? On exam no midline tenderness to palpation but notable muscle spasms on bilateral lower back. -Trial of Flexeril 10 mg tabs nightly over the next few days -Can continue taking naproxen during the day -Rx lidocaine patches to use at night -Recommended stretching/strengthening and heating as needed -Will refer to physical therapy to work on range of motion for her lower back and legs -Patient in follow-up in 6-8 weeks or sooner if needed -ER p recautions if any red flag symptoms o ccur Ordered: cyclobenzaprine(cyclobenzaprine 10 mg oral tablet), 1 tab(s), Oral, every day at bedtime, # 21 tab(s), 0 total refill(s), Acute, Pharmacy: [facility] [Last filled 08/22/24] lidocaine topical(lidocaine 5% topical patch), 1 patch(es), Topical, Daily, Leave on for up to 12 hours within a 24 hour period (12 hours on, 12 hours off), # 30 patch(es), 3 total refill(s), Maintenance, Pharmacy: [facility] [Federal Rx: #30 last filled 08/22/24] Referral Request 2.0 - DoD 2. A nxiety disorder, unspecified Patient also noted that he was running low on his Lexapro 10 mg. He states that he has not felt any changes to symptoms and feels in some ways his anxiety has increased a bit. Pt has been on lexapro f or about 4wks. Denies SI/HI at this time. -Will increase lexapro to 2 0mg daily -Patient understands side effects of medication -ER precautions if SI/HI -Pt to f/u in 4-6wks or sooner if needed Ordered: escitalopram(escitalopram 20 mg oral tablet), 1 tab(s), Oral, Daily, # 60 tab(s), 0 total refill(s), Maintenance, Pharmacy: [facility] [Last filled 08/22/24] The patient (is) World Wide Qualified. 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 Quite often unanticipated grammatical, syntax, homophones, and other interpretive errors are inadvertently transcribed by the computer software. Please disregard these errors and excuse any errors that have escaped final proofreading. If are any questions regarding documentation, please contact this provider directly. Extracted from:Title: [facility] Lab f/u/HPI Form/MH Author: SHANNON KWOK PA Date: 07/02/24 1. S ubclinical hypothyroidism 38 y /o M p resents to clinic for lab f/u. Patient's most recent thyroid labs showed evidence of subclinical hypothyroidism. Patient states some increased fatigue as well as dry patches o n skin. He denies cold intolerance or constipation at this time. -we will recheck T SH/T3-T4 -Discussed possibility of treating with levothyroxine if T SH is elevated above 7 -Patient to follow-up after labs are completed Ordered: TSH w/ Reflex FT4 and Total T3 2. P lantar fasciitis Patient also needing HPI form completed for upcoming plantar fascial r elease on his right foot. Patient has been dealing with plantar fasciitis for several years and has tried physical therapy and s hoe inserts. patient has no current concerns of surgery. Patient has no personal history of any cardiovascular diseases/diabetes/pulmonary diseases. -no concerning f indings on P E that would indicate further risk stratification -Form completed and returned to pt -f/u with surgical team for post-op appointments -f/u if any concerns 3. A nxiety p atient currently sees behavioral health at [facility] and was recommended to trial anxiety medication for issues with sleep/anxiety. Patient states that he has trouble staying asleep most nights and will wake up multiple times and have trouble falling back asleep due to for thinking things. He states that his anxiety also occurs 2 to his work life. He is open to starting an SSRI. N o concern for SI/HI at this appointment. ALEC-7: G AD2 Score: 2 Score GAD7 Score: 1 0 Score H igh GAD7 Problem Severity: Somewhat difficult PHQ-9: I nitial Depression Screen Score: 0 Score PLAN: - Rx: e scitalopram (Lexapro). Discussed ADRs: lethargy, decreased libido, GI upset, etc. Cautioned regarding withdrawal symptoms if medication is stopped abruptly without taper. - Advised patient to go to ER immediately for SI/HI/morbid ideation. - Follow up in clinic: 6-8 weeks or earlier if needed. - All questions answered. Patient verbalized understanding and agreed with plan. Ordered: escitalopram(escitalopram 10 mg oral tablet), See Instructions, Oral, take one-half tablet by mouth every day for 7 days, then take one tablet every day for anxiety, # 85 tab(s), 0 total refill(s), Maintenance, 90 days, take one-half tablet by mouth every day for 7 days, then take one tablet ev... 4. A llergic rhinitis Chronic condition. Well controlled. No other concerns. -Will continue current medication regimen -f/u as needed Orders: alfuzosin(alfuzosin 10 mg oral tablet, extended release), 1 tab(s), Oral, Daily, # 90 tab(s), 3 total refill(s), Maintenance, 1 tab(s) Oral Daily, Pharmacy: [facility] [Not filled] cetirizine(ZyrTEC 10 mg oral tablet), 1 tab(s), Oral, Daily, PRN allergy symptoms, # 90 tab(s), 3 total refill(s), Maintenance, 1 tab(s) Oral Daily,PRN:allergy symptoms, Pharmacy: [facility] [Not filled] The patient (is) World Wide Qualified. 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 Quite often unanticipated grammatical, syntax, homophones, and other interpretive errors are inadvertently transcribed by the computer software. Please disregard these errors and excuse any errors that have escaped final proofreading. If are any questions regarding documentation, please contact this provider directly. Extracted from:Title: [facility] Multiple Concerns Author: MAGDA BAINS PA Date: 05/12/24 1. L eft testicular pain 38 y/o male with acute L scrotal pain. Reassuring vital signs. On exam anterosuperior testicular pain with TTP. Suspect torsion of appendix testis. Complete ultrasound to exclude testicular torsion as well as UA. - Recommend application of ice and use of Tylenol/ibuprofen for pain relief - Reviewed ER precautions - F/u to review imaging/lab results Ordered: ibuprofen(ibuprofen 600 mg oral tablet), 1 tab(s), Oral, every 8 hr, PRN pain (moderate), X 30 days, # 90 tab(s), 0 total refill(s), Acute, 06/11/2024, 1 tab(s) Oral every 8 hr,x30 days,PRN:pain (moderate), Pharmacy: [facility] [Last filled 05/12/24] acetaminophen(Tylenol 325 mg oral tablet), 1 tab(s), Oral, every 4 hr, PRN pain or fever, X 10 days, # 50 tab(s), 0 total refill(s), Acute, 05/22/2024, 1 tab(s) Oral every 4 hr,x10 days,PRN:pain or fever, Pharmacy: [facility] [Last filled 05/12/24] Urinalysis with Microscopic and Culture if Indicated US Scrotum (Contents) w/ Doppler if ind 2. P ain of bilateral hands 38 y/o male with bilateral PIP joint pain despite physical therapy. Negative inflammatory markers. Complete plain films to evaluate for degenerative changes - Follow-up to review imaging results Ordered: ibuprofen(ibuprofen 600 mg oral tablet), 1 tab(s), Oral, every 8 hr, PRN pain (moderate), X 30 days, # 90 tab(s), 0 total refill(s), Acute, 06/11/2024, 1 tab(s) Oral every 8 hr,x30 days,PRN:pain (moderate), Pharmacy: [facility] [Last filled 05/12/24] acetaminophen(Tylenol 325 mg oral tablet), 1 tab(s), Oral, every 4 hr, PRN pain or fever, X 10 days, # 50 tab(s), 0 total refill(s), Acute, 05/22/2024, 1 tab(s) Oral every 4 hr,x10 days,PRN:pain or fever, Pharmacy: [facility] [Last filled 05/12/24] 3. H yperlipidemia Est d x. >50% decrease in LDL with high intensity statin therapy. Continue atorvastatin 40 mg indefinitely - Reviewed diet/exercise, impact of weight loss - Repeat lipid screening in 12 months Orders: XR Hand Complete 3+ Views Left XR Hand Complete 3+ Views Right The patient (is) World Wide Qualified. AM Dispo: Non-Fly Cleared for AFSC/MOS Duties: Y es Cleared for continued service: Yes Cleared for mobility duties: Yes Cleared for participation in physical fitness program: Yes PHA/MHA/DRHA: UTD Visit deployment related: No Profile Reviewed N/A MEB in progress: No IMR/ASIMS Status: Jefferson Bains BSC, PAJenniferC [facility]) [place] RIOS Please note that this dictation was completed with computer voice recognition software, [employer]. Quite often unanticipated grammatical, syntax, homophones, and other interpretive errors are inadvertently transcribed by the computer software. Please disregard these errors and excuse any errors that have escaped final proofreading. If are any questions regarding documentation, please contact this provider directly. Extracted from:Title: [facility] HLD Author: AMARA VEGA, DO Date: 01/10/24 HLD - Hyperlipidemia Acute, u ncontrolled -Statin therpay indicated: Yes -LDL goal: <100 (high risk) - Initiate s tatin therapy: A torvastatin 40mg. - Labs: [X] Rcheck lipid profile 6-8 weeks after starting statin, and then annually - Cardiovascular: [X] BP at goal (<130/80 per AHA/ACC guidelines) - Lifestyle Modifications: [_] Physical activity: encouraged increased activity with goal of 150min moderate exertion weekly [_] Sleep: reviewed sleep hygiene; goal of 6-8hr/night [_] Behavioral modification: pt has good social support INITIATING STATIN THERAPY: Per 2019 ACC/AHA Guidelines: - I nitiate therapy if A [place] of the following are present: [X] Age 20-75 and LDL > 190 [_] Age 40-75 and T2DM [_] Age 40-75 and ASCV risk > 7.5% [_] Prior history of SD or CVA The patient (is ) World Wide Qualified. 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 Visit deployment related: N o Profile Reviewed MEB in progress: No IMR/ASIMS Status: [X] Green (no action), Member aware. Ordered: Lipid Panel Orders: atorvastatin(atorvastatin 40 mg oral tablet), 1 tab(s), Oral, Daily, for cholesterol, # 90 tab(s), 3 total refill(s), Maintenance, 1 tab(s) Oral Daily,Instr:for cholesterol, Pharmacy: [facility] [Not filled] Capt Ramírez DO, SON, Family Physician [facility]/Safety Tech [facility] in [place], [place] [address] [place] [address] Extracted from:Title: [facility]: bilateral hand pain Author: DAVID VELÁSQUEZ MD Date: 11/28/23 1. 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 No significant trauma or systemic disease noted that could be contributing to the symptoms. Additionally likely has some tendinopathy causing aching in dorsal surface of bilateral hands. - Recommend the patient to avoid activities that could exacerbate the condition, such as leaning on the elbow or repetitive elbow bending, encoruaged trial of splint - C onttay N SAIDs PRN - Referred to OT for nerve glide exercises - f/u in 6-8 weeks if no improvement with OT - consider imaging at that time Ordered: Referral Request 2.0 - DoD 2. P ain in right hand See plan for ulnar neuropathy as above, bilateral ulnar neuropathy likely. Ordered: Referral Request 2.0 - DoD The patient (is ) World Wide Qualified. 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 Visit deployment related: N o Profile Reviewed MEB in progress: No IMR/ASIMS Status: [X] Green (no action), Member aware. Patient aware to call 911 or go to the nearest emergency room/urgent care for any urgent/emergent concerns or call and leave message with the clinic for any other concerns. Patient can also access [employer] at [email or web address] to leave message with PCM Team. Please note that this dictation was completed with [employer] dictation microphone and software and unintentional errors may be present. Efforts were made to check spelling and grammatical errors. I f there are questions about the note please do not hesitate to ask. Tamera Penny Sales Representative Graphic Art Physician, PGY-3 [employer], [facility] IVAN Fuentes Extracted from:Title: [facility] Virtual MHA/PHA Author: KALI DONOVAN MD Date: 10/05/23 1. 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 Triage with [facility] Sep 28, reviewed resources, plan is f/u with POS and follow up with MH as needed. Discussed additional resources availabls Palpitations. Discussed ER criteria. Plan on repeat lipids, sleep study ordered, address anxiety, and f/u with PCM if continuing. To see PCM sooner if worsening sx or acute concerns. Reviewed slot service specialist's PHAQ and EHR for the past twelve months t o include r eported height, weight, current medical conditions and deployment related health problems, traumatic brain injury screening, m edications, allergies, i mmunizations, medical readiness laboratory tests and occupational health records. Completed screenings and provided patient education as appropriate. MHA completed in ASIMS and copied to this record. Traveling Missionary is aware of services available (911, [phone], [employer], [facility], [employer], B , , embedded squadron resources, e mergency room, first shirt or others in [facility], etc) and how to contact them if needed. Traveling Missionary denies suicidal and homicidal ideation. Preventative services reviewed and discussed per age, race, and gender. Reviewed immunization history and assessed immunization status. Reviewed physical activity, s exual risk factors and previous STD testing date, including HIV. Reviewed readiness labs and occupational health examinations required. Compared medications reported by Traveling Missionary to active medication list in [facility] and any variances were reconciled. Time spent in pt care, counseling and reviewing chart was approximately 2 0min. Patient informed PHA complete and ASIMS updated. Any complaints or issues identified while conducting the PHA have been addressed and/or the slot service specialist was instructed to return to their PCM for care. //SIGNED// KALI DONOVAN, Col, [employer], MC, FS Family Physician/Flight Surgeon Phase 2 Medical Readiness Cell 2. H yperlipidemia 2020 SHV=195, Mild HLP, not in statin benefit but overdue for 1 year repeat abnormal Fasting lipids ordered, counseled if stable will not be contacted but encouraged to view through Marisela f/u with PCM annually, sooner as needed 12/10/[address] [place] [address] Functional Status Combined list of recent functional and cognitive assessments recorded at Department of Defense and Veterans Affairs (VA).VA Functional [place] Measurement (FIM) Scale: 1 = Total Assistance (Subject = 0% +), 2 = Maximal Assistance (Subject = 25% +), 3 = Moderate Assistance (Subject = 50% +), 4 = Minimal Assistance (Subject = 75% +), 5 = Supervision, 6 = Modified [place] (Device), 7 = Complete [place] (Timely, Safely). Assessment Date/Time Source Assessment Type Assessment Skill Assessment Score Assessment Details No data available for this section
--- OUTSIDE RECORDS SUMMARY | 2024-12-10 01:36 | XMS_ITS | Clinical Summary ---
Author Organization [facility] Address [address] [place] [id number] Care Team Providers Care Lactation Consultant Name Role Phone Jamilah Ballesteros Primary Care Provider [phone] Allergies No known active allergies Medications atorvastatin (LIPITOR) 40 MG tablet Take 1 tablet (40 mg total) by mouth nightly at bedtime. Active cetirizine (ZYRTEC) 10 MG tablet Take 1 tablet (10 mg total) by mouth daily. Active alfuzosin ER (UROXATRAL) 10 MG 24 hr tablet Take 1 tablet (10 mg total) by mouth daily. Active Multiple Vitamin (MULTIVITAMIN ADULT OR) Take 1 tablet by mouth daily. Active Collagen-Vitami n C-Biotin (COLLAGEN) 500-50-0.8 MG Cap Take 1 Capful by mouth daily. Active pseudoephedrine ER (SUDAFED) 120 MG 12 hr tablet Take 1 tablet (120 mg total) by mouth every 12 (twelve) hours. 28 tablet 07/30/2024 Active Active Problems No known active problems Social History Tobacco Use Types Packs/Day Years Used Date Smoking Tobacco: Never Smokeless Tobacco: Never Tobacco Cessation:Counseling Given: Not Answered Alcohol Use Standard Drinks/Week Comments Yes 6.7 (1 standard drink = 0.6 oz p ure alcohol) Sex and Gender Information Value Date Recorded Sex Assigned at Male 07/30/2024 4:41 PM HAIR STYLIST Legal Sex Male 10:20 AM HAIR STYLIST Gender Identity Not on file Sexual Orientation Not on file Last Filed Vital Signs Vital Sign Reading Time Taken Comments Blood Pressure 144/104 07/30/2024 4:50 PM HAIR STYLIST Pulse 79 07/30/2024 4:50 PM HAIR STYLIST Temperature 36.6 C (97.9 F) 07/30/2024 4:50 PM HAIR STYLIST Respiratory Rate 20 07/30/2024 4:50 PM HAIR STYLIST Oxygen Saturation 100% 07/30/2024 4:50 PM HAIR STYLIST Inhaled Oxygen Concentration - - Weight 99.8 kg (220 lb) 07/30/2024 4:50 PM HAIR STYLIST Height 172.7 cm (5' 8) 07/30/2024 4:50 PM HAIR STYLIST Body Mass Index 33.45 07/30/2024 4:50 PM HAIR STYLIST Plan of Treatment Health Maintenance Due Date Last Done Comments Annual Physical 1987 Hepatitis C 2002 Hepatitis B Vaccines (1 of 3 - 19+ 3-dose series) 2003 COVID-19 Vaccine (4 - 2023-2 5 season) 2024 07/28/2022, 09/28/2021, 08/31/2020 DTaP, Tdap and Td Vaccines ( 4 - Td or Tdap) 02/21/2032 02/20/2022, 12/15/2011, 12/12/2002 Meningococcal Vaccine Aged Out 04/20/2016 , 12/31/2008, 12/12/2002 No longer eligible based on patient's age to complete this topic HPV Vaccines Aged Out No longer eligi ble based on patient's age to complete this topic Meningococcal B Vaccine Aged Out No l onger eligible based on patient's age to complete this topic Pneumococcal Vaccine: Pediatrics (0 to 5 Years) and At-Risk Patients (6 to 49 Years) Aged Out No longer eligible b ased on patient's age to complete this topic RSV Immunizations Under 20 Months Aged Out No longer eligible b ased on patient's age to complete this topic Medical Devices Implanted Type Area Kerfer Machine Operator Device Identifier Shelf Expiration Date Model / Serial / Lot Viaflow Implanted:Qty: 1 on 07/04/2024 by Lenny Stout DPM at [facility] Right: Foot [employer] 12/02/2028 [id number]-0020 / [id number] / Insurance Care Teams Lactation Consultant Relationship Specialty Start Date End Date Jamilah Ballesteros PA Yeni Velarde [facility] [address] [place] [address] PCP - General PHYSICIAN SHORTHAND REPORTER 07/03/24
--- OUTSIDE RECORDS SUMMARY | 2024-12-10 01:36 | XMS_ITS | Referral Summary ---
Author Organization [facility] Address [address] [place] [id number] Care Team Providers Care Chemical Dependency Nurse Name Role Phone Jamilah Ballesteros Primary Care Provider +1- [phone] Encounters Date Type Department Care Team Description 11/14/2024 8:00 AM CDT Procedure visit [facility] Otolaryngology [address] [place] [phone] Pam Chadwick Au.D. Tinnitus, bilateral (Primary Dx) from Last 3 Months Medications No known medications Active Problems No known active problems Social History Tobacco Use Types Packs/Day Years Used Date Smoking Tobacco: Never Assessed Personal Safety Answer Date Recorded Getting School Help Needed Not on file 12/06 Sex and Gender Information Value Date Recorded Sex Assigned at Not on file Legal Sex Male 12:47 PM CDT Gender Identity Not on file Sexual Orientation Not on file Plan of Treatment Not on file Insurance [facility] Care Teams Chemical Dependency Nurse Relationship Specialty Start Date End Date Jamilah Ballesteros PA [address] [place] [address] PCP - General Physician Ic Designer Custom 11/14/24
--- OUTSIDE RECORDS SUMMARY | 2024-12-10 01:36 | XMS_ITS | Clinical Summary ---
Author Organization [facility] Address [address] [place] [id number] Care Team Providers Care Security And Compliance Analyst Name Role Phone Jamilah Ballesteros Primary Care Provider +1- [phone] Medications No known medications Active Problems No known active problems Encounters Date Type Department Care Team Description 11/14/2024 8:00 AM CDT Procedure visit [facility] Otolaryngology [address] [place] [phone] Pam Chadwick Au.D. Tinnitus, bilateral (Primary Dx) from Last 3 Months Social History Tobacco Use Types Packs/Day Years Used Date Smoking Tobacco: Never Assessed Personal Safety Answer Date Recorded Getting School Help Needed Not on file 12/06 Sex and Gender Information Value Date Recorded Sex Assigned at Not on file Legal Sex Male 12:47 PM CDT Gender Identity Not on file Sexual Orientation Not on file Obstetrics History Plan of Treatment Health Maintenance Due Date Last Done Comments Depression Screening 1984 Hepatitis C Screening 1984 Hepatitis B Screening 2002 Regular Well Visit/Exam 18-64 2002 Varicella Vaccines (1 of 2 - 13+ 2-dose series) 04/28/2015 Covid-19 Vaccine ( season) 2024 09/28/2021, 08/31/2020 Influenza Vaccine (Season Ended) 2025 05/11/2022, 04/13/2021, 05/06/2020, Additional history exists DTaP/Tdap/Td Vaccine (3 - Td or Tdap) 02/21/2032 02/20/2022, 12/15/2011, 12/12/2002 HPV Vaccines Aged Out No longer eligi ble based on patient's age to complete this topic Pneumococcal vaccine <65 Aged Out No longer eligible based on patient's age to complete this topic Insurance [facility] Care Teams Security And Compliance Analyst Relationship Specialty Start Date End Date Jamilah Ballesteros PA [address] [place] [address] PCP - General Physician Functional Skills Tutor 11/14/24
[2024-12-10 08:45] VITALS: BP 123/79; PULSE 66; RESP 18; TEMP 35.7; O2SAT 99; BMI 33.0
--- NOTE | 2024-12-10 08:56 | WPDANESEPPF ---
Anes - Initial Pre Proc Eval Procedure: Operation Date: 12/10/24 10:00 Proposed Procedures p Colonoscopy - Diego Kellogg MD Date/Time: 12/10/24 08:56 Surgeon: Diego Kellogg MD Pre Op Diagnosis: Family Hx of malignant neoplasm of digestive organ Patient Data Age: 39 Gender: M Height: 1.73 m Weight: 98.5 kg Last Vital Signs Temp 96.3 F L 12/10/24 08:45 Pulse 66 12/10/24 08:45 Resp 18 12/10/24 08:45 BP 123/79 12/10/24 08:45 Pulse Ox 99 12/10/24 08:45 O2 Del Method Room Air 12/10/24 08:45 Allergies Allergy/AdvReac Type Severity Reaction Status Date / Time No Known Allergies Allergy Verified 12/10/24 08:52 Home Medications ?Medication ?Instructions ?Recorded ?Confirmed ?Type alfuzosin 10 mg tablet,extended 10 mg PO .qd 11/27/24 12/10/24 History release 24 hr atorvastatin 40 mg tablet 40 mg PO QPM 11/27/24 12/10/24 History cetirizine 10 mg tablet 10 mg PO Q12H 11/27/24 12/10/24 History escitalopram oxalate 10 mg tablet 10 mg PO DAILY 11/27/24 12/10/24 History Patient hx anesthesia problems: none Family hx anesthesia problems: none Results Review: All pre-operative results and documents have been reviewed as part of the pre-operative evaluation. [facility] Social History Social History Smoking status: Never smoker Alcohol intake: current Drinks per week: 4 Substance use: never Substance use type: does not use Living arrangements: with family Spiritual care concerns: No Anes - Eval Final PreProcedure Day of Procedure 12/10/24 08:56 Patient weight: normal Heart: regular rate and rhythm Lungs: clear to auscultation Airway: Mallampati scale class II Neurological: alert and oriented Last oral intake: >/= 8 hours ASA classification: II Emergent: no Anesthetic plan: proceed Anesthesia type and monitoring: general GIVS and standard monitoring Results Review: All pre-operative results and documents have been reviewed as part of the pre-operative evaluation. Informed Consent: The patient's anesthetic plan and its attendant risks and benefits were discussed with the patient/family/POA. Questions were solicited and answers provided to the satisfaction of the patient/family/POA.
[2024-12-10] MEDS: LACTATED RINGERS 1,000 ML 150 ML IV CONT (09:05)
--- NOTE | 2024-12-10 09:33 | PM.HPGS ---
History of Present Illness History of Present Illness Consent: Risks, benefits, and alternatives have been discussed and questions answered. Patient agrees to proceed with procedure. Chief complaint: Family Hx of malignant neoplasm of digestive organ Narrative: Ok Cleary III is a 39 year old male here for first colonoscopy, father had colon cancer Review of Systems Review of Systems: All systems reviewed & are unremarkable except as noted in HPI and below PMFSH Past Medical History Medical History (Updated 12/10/24 @ 09:35 by Diego Kellogg MD) Family history of colon cancer in father Social History Social History Smoking status: Never smoker Alcohol intake: current Drinks per week: 4 Substance use: never Substance use type: does not use Living arrangements: with family Spiritual care concerns: No Meds Home Medications and Allergies Home Medications ?Medication ?Instructions ?Recorded ?Confirmed ?Type alfuzosin 10 mg tablet,extended 10 mg PO .qd 11/27/24 12/10/24 History release 24 hr atorvastatin 40 mg tablet 40 mg PO QPM 11/27/24 12/10/24 History cetirizine 10 mg tablet 10 mg PO Q12H 11/27/24 12/10/24 History escitalopram oxalate 10 mg tablet 10 mg PO DAILY 11/27/24 12/10/24 History Allergies Allergy/AdvReac Type Severity Reaction Status Date / Time No Known Allergies Allergy Verified 12/10/24 08:52 Vital Signs Vital Signs - 24 hr 12/10/24 08:45 Temperature 96.3 F L Pulse Rate 66 Respiratory Rate 18 Blood Pressure 123/79 Pulse Oximetry 99 Oxygen Delivery Room Air Exam Const: General: comfortable and no acute distress HENMT: Face/Nose/Sinus: Normal nares present Eyes: General: appearance normal, both eyes and all related structures Neck: Neck: no JVD Resp: Auscultation: clear to auscultation bilaterally Cardio: Rate: regular rate Rhythm: regular rhythm GI: Inspection: non-distended GI Palp: Yes Soft to palpation Skin: General skin exam: normal color Neuro: General: gait normal Speech: normal speech Extrem: General: normal to inspection Psych: Mental Status: mental status grossly normal Assessment and Plan Assessment and plan (1) Family history of colon cancer in father: Code(s): Z80.0 - Family history of malignant neoplasm of digestive organs Status: Acute Assessment and Plan: colonoscopy
--- NOTE | 2024-12-10 09:53 | S_PTH ---
PATIENT: Ok Cleary III LOC: [facility] Bruce#:[id number] AGE/SX: 39/M ROOM: RE12/10/[address]: Diego Kellogg MD : 1985 BED: DIS: 12/10/2024 SPEC #: [id number] RECD: 12/10/24 11:25 STATUS: CHEKO REJose #: [id number] YONY: 12/10/24 09:[address]: Diego Kellogg DEPT: [facility] Surgical RECD BY: Heather Gutierres ENTERED: 12/10/24 11:25 SP TYPE: Surgical OTHR DR: [facility] Tissues: A - Colon Polypectomy Procedures: Hematoxylin and Eosin Stain Gross and Microscopic Level 4
[2024-12-10 09:55] VITALS: BP 104/72; PULSE 63; RESP 17; O2SAT 97
[2024-12-10 10:05] VITALS: BP 101/67; PULSE 60; RESP 14; O2SAT 98
== END 2024-12-10 10:22 | disposition home or self-care (01) ==
PROVIDERS: Visit Provider Internal Medicine Gastroenterology
PROC: 0DJD8ZZ Inspection of Lower Intestinal Tract, Via Natural or Artificial Opening Endoscopic (ICD-10-PCS; CPT 45378; principal; 2024-12-10 10:00)
DX: Z12.11 Encounter for screening for malignant neoplasm of colon (principal); D12.5 Benign neoplasm of sigmoid colon; Z80.0 Family history of malignant neoplasm of digestive organs
CPT/HCPCS: 45380; 88305; J2003; J2704; J7120